=== PATIENT | male | born 1950 | race Caucasian/White ===

== ENCOUNTER 2017-09-03 17:01 | Inpatient (IN) | payer OTHER ==
[~2017-09-03] VITALS: Ht 177.8 cm; Wt 115.7 kg
--- NOTE | ~2017-09-03 | HC ---
[facility] [place] [address] CONSULTATION Name: PHILLIP RODRIGUEZ Room #: 432-P [facility] IN M.R.#: [id number] Admission: 09/03/17 Attend Phys: Brady Black MD Discharge: Date of : 46 Report #: [id number] THIS REPORT FOR: //name// CC: Brady Black Stephane Stewart DATE OF SERVICE: 09/06/2017 ATTENDING PHYSICIAN: Brady Black MD TYPING CHECKER: Brady Hunter, PhD CLINICAL PRESENTATION: The patient is a 66-year-old male admitted to [facility] for evaluation and treatment of shortness of breath. He has a history of lung cancer, COPD and atrial fibrillation. Also, reported is swelling of his leg and right cheek. The patient had a partial pneumonectomy in both lower lobes of his right lung in 2009. Medical problems include community-acquired pneumonia, COPD exacerbation and hypoxia. PAST MEDICAL AND SURGICAL HISTORY: Depression and anxiety, sleep apnea, hypertension, essential tremors, cervical neck fusion with 2 rods with limited range of motion, bilateral knee replacement, right rotator cuff and torn bicep repair, and NIDDM. A complete description of his medical condition and history can be found in his medical record. Neuropsychological consultation was requested to provide assistance in the assessment of cognitive and emotional status and to provide recommendations and services. Prior to this most recent admission, he was living with his in their home. The patient has 2 children that live outside the home. He had 1 brother and 1 sister. His sister about 2 years ago. 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 He completed a GED. His fci was in 04/2005 because of medical problems led to him acquiring disability. He does have a remote history of alcohol abuse. The patient is reported to have been independent with instrumental activities of daily living that include driving. However, his has been helping with aspects of IADL's to allow for living independently. It should be noted that he recently filed for divorce. His indicated that they have been for over 40 years and they were not having any marital conflict. The filing for divorce was an action that very much surprised her. She is recently retiring and planning to assist in his care as necessary so that he can remain living independently. She was not wanting a divorce and continues to maintain assistance in his care. His judgment in filing for divorce is very poor. [facility] [address] [place] [address] CONSULTATION Name: PHILLIP RODRIGUEZ Room #: 432-P [facility] IN ..#: [id number] Admission: 09/03/17 Attend Phys: Brady Black MD Discharge: Date of : 46 Report #: [id number] TECHNIQUES UTILIZED: Clinical interview, review of medical records, staff consultation and behavioral observation, mini-mental status exam 2 standard version, brief abstract reasoning test, letter fluency evaluation and family interview -- . EXAMINATION FINDINGS: The patient was alert and cooperative with the assessment. He accurately described events preceding his hospitalization. However, difficulty with short term memory, word finding, anxiety and depression are reported. He does not report difficulty with sleep or appetite. He mentioned recently filing for divorce because of his 's spending habits. However, as indicated his was unaware of any reason or explanation for his filing for divorce. She has concern about his ability to manage and live independently without her help. Patient is lacking insight into the difficulty that he would have in living independently. His performance on the MMSE-2 brief version was in the borderline range with a raw score of 13, T score of 35 and percentile rank of 7. He was 3/3 for initial registration, 5/5 for orientation to time, 4/[address] and 1/3 for immediate recall of 3 items after a brief time delay and distraction. His performance on the MMSE-2 standard version was at the 10th percentile with a raw score of 24 and a T score at 37. He was 3/5 for serial sevens, 2/2 for naming, 1/1 for repetition, 3/3 for comprehension. He could read and follow a single command. He has a severe upper extremity tremor and was not asked to write or recreate a design. He was able to dictate a sentence. His performance on a brief abstract reasoning test was in the impaired range with a raw score of 5/8. Letter fluency was within normal limits with a raw score of 32 and a T score of 57, which is at the 76th percentile. Category fluency was at the 4th percentile and in the borderline range with a raw score 26 and a T score of 32. Overall, total fluency was in the average range with a raw score of 58 and a T score of 47 and percentile rank of 38. The patient experienced a loss of mental set during category fluency and spontaneouls began naming types of cars instead of animals. Perseveration was also noted in the repetition of items. Greater deficits in category fluency often suggest impairment within the medial temporal lobe involving semantic memory, which can be seen in neurodegenerative disorders that effect memory. Hypoxia can often result in an impairment in memory which will impact judgment. DIAGNOSTIC IMPRESSION: Major neurocognitive disorder (dementia), due to medical etiology -- hypoxic/anoxic trauma -- extent to be determined, likely in the enzh-tk-lrlkatsr range. [facility] [place] [address] CONSULTATION Name: PHILLIP RODRIGUEZ Room #: 432-P ADM IN M.R.#: [id number] Admission: 09/03/17 Attend Phys: Brady Black MD Discharge: Date of : 48 Report #: [id number] Unspecified anxiety disorder. RECOMMENDATIONS: The patient would benefit from a more thorough neuropsychological evaluation following his hospitalization. There is evidence of a severe neurocognitive impairment, which will impact judgment. Assistance in the management of medication, nutrition and finances are indicated. The patient should discontinue driving at this time pending a more thorough evaluation of his competency. Thank you very much for allowing me to provide the consultation on this patient. <ELECTRONICALLY SIGNED> By: Brady Hunter, PhD 09/07/17 1900 1546 1627 Brady Hunter, PhD /nt
--- NOTE | ~2017-09-03 | HC ---
[facility] [place] [address] CONSULTATION Name: PHILLIP RODRIGUEZ Room #: 432-P [facility] IN M.R.#: [id number] Admission: 09/03/17 Attend Phys: Brady Black MD Discharge: Date of : 48 Report #: [id number] THIS REPORT FOR: //name// CC: Brady Stewart REASON FOR CONSULTATION: Atrial fibrillation. HISTORY OF PRESENT ILLNESS: The patient is a 66-year-old gentleman with significant underlying lung disease and permanent atrial fibrillation. His history includes hypertension, sleep apnea for which he uses CPAP, diabetes and lung cancer with resection, now presents with increasing shortness of breath and exertional weakness. No chest heaviness or pressure. He has had about a 7-8 pound weight gain over the past week. He tells me that he uses oxygen at night with his CPAP. He has a pulse oximeter at home and routinely gets oxygen measurements in the 80s during the day. He generally does not use oxygen during the day. His usual weight is around 245 pounds. He denies orthopnea or paroxysmal nocturnal dyspnea. No bleeding problems with Xarelto. ALLERGIES: HE IS ALLERGIC TO POLYMYXIN AND BACITRACIN. MEDICATIONS: Include Cardizem-CD 180 mg twice daily, Lexapro 20 mg daily, torsemide 40 mg daily, Spiriva inhaler, Lipitor 20 mg daily, Levemir 35 units twice daily, metformin 1000 mg twice daily, potassium 20 mEq daily, Victoza 1.8 mg in the evening, Xarelto 20 mg daily, Prevacid as needed. PAST MEDICAL HISTORY: His past history and medical records have been reviewed and includes a history of COPD, cervical fusion and rotator cuff repair, sleep apnea for which he uses CPAP and nocturnal oxygen, diabetes, permanent atrial fibrillation, bilateral knee replacements, pulmonary hypertension. SOCIAL HISTORY: He is a former smoker, he quit in 2002. FAMILY HISTORY: Unremarkable for premature coronary disease. REVIEW OF SYSTEMS: All systems negative except as that noted above. PHYSICAL EXAMINATION: GENERAL: Reveals a pleasant gentleman who is in no distress, alert. VITAL SIGNS: Blood pressure is 125/75, heart rate of 110 and irregular. He is afebrile, 255 pounds. HEENT: There are neither xanthelasma, subcutaneous xanthomata, oral mucosal or digital cyanosis or kyphoscoliosis present. CHEST: Reveals diminished breath sounds at both bases. CARDIOVASCULAR: Irregularly irregular rhythm with a normal S1 and increased pulmonic closure sound. ABDOMEN: Soft and nontender. [facility] [address] [place] [address] CONSULTATION Name: PHILLIP RODRIGUEZ Room #: 432-[facility] IN ..#: [id number] Admission: 09/03/17 Attend Phys: Brady Black MD Discharge: Date of : 48 Report #: [id number] EXTREMITIES: With trace to 1+ edema. Radial pulses are 2+. NEUROLOGIC: He is alert with a nonfocal exam. LABORATORY DATA: EKG: Atrial fibrillation, right bundle branch block. He has a history of normal left ventricular systolic function with moderate pulmonary hypertension in the 50 range. Sodium is 140, potassium 3.8, creatinine 1.0. Troponin of 0, proBNP of 776. White count 8.5, hemoglobin 15, hematocrit 46, platelet count 244. RADIOLOGICAL DATA: Chest x-ray demonstrates an elevation of the right hemidiaphragm. IMPRESSION: 1. Permanent atrial fibrillation. 2. Chronic hypoxemic respiratory failure. 3. Dzqha-ey-jiadzoh diastolic heart failure, multifactorial, in part related to permanent atrial fibrillation and chronic hypoxemic respiratory failure. 4. Diabetes. 5. Sleep apnea, on CPAP and nocturnal oxygen. 6. Hypertension. 7. Hypercoagulable. 8. Lung cancer, prior resection. RECOMMENDATIONS: 1. Resume rate controlling medications. 2. Continued, probably lifelong anticoagulant therapy. 3. Gentle diuresis. 4. Pulmonary evaluation. The patient reports consistently low oxygen saturations at home during day. I suspect in part this may be contributing to some of his symptoms. I have discussed these issues with the patient. Thank you for asking me to participate in his care. <ELECTRONICALLY SIGNED> By: Daniel Rollins MD, FACC 09/08/17 0751 0853 1153 Daniel Rollins MD, FACC /nt
--- NOTE | ~2017-09-03 | 2DMMODE ---
[facility] [address] [place] [address] 2 D/M-MODE ECHOCARDIOGRAM Name: PHILLIP RODRIGUEZ Room #: 432-P [facility] IN ..#: [id number] Admission: 09/03/17 Attend Phys: Brady Black, Discharge: Date of : 46 Date of Service: 09/04/17 1323 Report #: [id number] THIS REPORT FOR: //name// APPROVED REPORT Study performed: 09/04/2017 10:59:19 EXAM: Comprehensive 2D, Doppler, and color-flow Echocardiogram Patient Location: Bedside Room #: 432 Status: routine BSA: 2.31 HR: 98 bpm BP: 123/75 mmHg Other Information Study Quality: Technically Limited/Technically DifficultTechnically Limited Technically limited study due to body habitus, lung disease, inability to position patient. Indications Congestive Heart Failure COPD Diabetes Atrial Fibrillation Hypertension/HDD 2D Dimensions LVEF(%): 54.90 (>50%) IVSd: 10.43 (7-11mm) LVOT Diam: 21.01 (18-24mm) LVDd: 53.67 mm PWd: 10.62 (7-11mm) LVDs: 38.23 (25-40mm) Aortic Root: 32.40 mm IVC: 22.00 mm Hilliard's LVEF: 54.90 % Volumes Left Atrial Volume (Systole) Single Plane 4CH: 39.66 mL Single Plane 2CH: 79.03 mL LA ESV Index: 26.00 mL/m2 Aortic Valve AoV Peak Vikash.: 1.11 m/s AO Peak Gr.: 4.89 mmHg LVOT Max P.13 mmHg [facility] [address] [place] [address] 2 D/M-MODE ECHOCARDIOGRAM Name: JENNIFERPHILLIP Verenice Room #: 432-P [facility] IN [facility]#: [id number] Admission: 09/03/17 Attend Phys: Brady Black, Discharge: Date of : 46 Date of Service: 09/04/17 1323 Report #: [id number] LVOT Max V: 0.53 m/s YUDI Vmax: 1.67 cm2 Mitral Valve MV Decel. Time: 146.18 ms MV E Max Vikash.: 1.12 m/s Tricuspid Valve TR Peak Vikash.: 3.22 m/s RAP Estimate: 15.00 mmHg TR Peak Gr.: 41.54 mmHg PA Pressure: 56.00 mmHg Left Ventricle The left ventricle is normal size. There is normal left ventricular wall thickness. Left ventricular systolic function is borderline. LVEF is 50%. This study is not technically sufficient to allow evaluation of the LV diastolic function due to atrial fibrillation. Right Ventricle Right ventricle is not well visualized. Atria The left atrium size is normal. Right atrium is not well visualized. Aortic Valve The aortic valve is not well visualized. No aortic regurgitation is present. There is no aortic valvular stenosis. Mitral Valve The mitral valve is normal in structure. Trace mitral regurgitation. No evidence of mitral valve stenosis. Tricuspid Valve The tricuspid valve is normal in structure. Mild tricuspid regurgitation. PAP is estimated at 56 mmHg. Pulmonic Valve Pulmonic valve is not well visualized. Great Vessels The aortic root is normal in size. IVC is dilated and collapses <50% with inspiration. Pericardium [facility] [place] [address] 2 D/M-MODE ECHOCARDIOGRAM Name: PHILLIP RODRIGUEZ Room #: 432-P [facility] IN .R.#: [id number] Admission: 09/03/17 Attend Phys: Brady Black, Discharge: Date of : 46 Date of Service: 09/04/17 1323 Report #: [id number] There is no pericardial effusion. <Conclusion> The left ventricle is normal size. LVEF is 50%. Right ventricle is not well visualized. The aortic valve is not well visualized. No aortic regurgitation is present. There is no aortic valvular stenosis. The mitral valve is normal in structure. Trace mitral regurgitation. The tricuspid valve is normal in structure. Mild tricuspid regurgitation. PAP is estimated at 56 mmHg. Pulmonic valve is not well visualized. There is no pericardial effusion. <ELECTRONICALLY SIGNED> By: Kevin Gallegos MD 09/04/17 1323 1323 1323 Kevin Gallegos MD /INF
--- NOTE | ~2017-09-03 | EKG ---
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
[~2017-09-03 17:01] MED LIST: ALLEGRA ALLERG180 MG; ALLEGRA ALLERG180 MG PO; AMIODARONE CV KI1 E1 PO; ASA81BEC PO; B12INJ PO; CARDIZEM CD 18180 M3 PO; CARDIZEM PO; CEFDINIR300 MG PO; CORDARONE PO; COUMADIN PO; DARVOCET-N 1001 EAC1 PO; DEMADEX20 MG PO; GLUCOPHAGE1000 MG PO; LEVEMIR SQ; LEVEMIR SUBQ; LEXAPRO20 MG PO; LIPITOR 20 MG T20 M1 PO; LOPRESSOR100 MG PO; MULTAQ400 MG PO; MULTIVITAMINS PO; PERCOCET 5-3251 EACH PO; POTASSIUM20 PO; PREVACID30 MG PO; PROAIR HFA8.5 GM PO; SIMVASTATIN80 MG PO; TRIHEXYPHENIDYL PO; UNICOMPLEX M TA1 TA1 PO; VICTOZA0.6 MG/0.1 SUBQ; VITAMIN D2000 UNIT PO; WELCHOL 625 MG625 MG PO; XARELTO20 MG PO
[2017-09-03 17:10] VITALS: BP 132/70
[2017-09-03 18:05] LABS: ABSOLUTE NEUTROPHILS 6.4 thou/uL (1.4-8.2); BASOPHILS 0.5 % (0.0-2.0); EOSINOPHILS 2.2 % (0.0-3.0); HEMOGLOBIN 15.6 gm/dL (14.0-18.0); LYMPHOCYTES 12.6 % (24.0-44.0); MCH 31.4 pg (26.0-34.0); MCHC 33.9 g/dL (28.0-37.0); MCV 92.6 fL (80.0-100.0); MONOCYTES 9.7 % (1.0-8.0); PLATELET COUNT 244 thou/uL (150-400); RBC 4.97 mil/uL (4.50-6.00); RDW 13.8 % (10.5-14.5); WBC 8.5 thou/uL (4.0-11.0)
[2017-09-03 18:13] LABS: ANION GAP 7 mmol/L (7-16); BUN 17 mg/dL (7-18); CALCIUM 9.3 mg/dL (8.5-10.1); CHLORIDE 103 mmol/L (98-107); CO2 30 mmol/L (21-32); GLUCOSE 115 mg/dL (74-106); POTASSIUM 3.8 mmol/L (3.5-5.1); SODIUM 140 mmol/L (136-145)
[2017-09-03 18:22] LABS: ALBUMIN 3.8 g/dL (3.4-5.0); SGOT 16 U/L (15-37); SGPT 22 U/L (30-65); TOTAL BILIRUBIN 0.6 mg/dL (<0.1-1.0); TOTAL PROTEIN 7.3 g/dL (6.4-8.2); TROPONIN-I < 0.04 ng/mL (<0.06)
[2017-09-03 19:10] VITALS: BP 128/76
[2017-09-03] MEDS ORDERED: LASIX 20 MG TAB20 MG PO (19:25)
[2017-09-03 20:28] VITALS: BP 99/47
[2017-09-03 21:06] VITALS: BP 131/63
[2017-09-03] MEDS ORDERED: SPIRIVA INH (23:10)
[2017-09-04 05:06] VITALS: BP 120/71
[2017-09-04 08:06] VITALS: BP 123/75
[2017-09-04 11:01] LABS: ALBUMIN 3.9 g/dL (3.4-5.0); CALCIUM 9.3 mg/dL (8.5-10.1); CREATININE 1.1 mg/dL (0.7-1.3); TOTAL BILIRUBIN 0.8 mg/dL (<0.1-1.0); TOTAL PROTEIN 7.1 g/dL (6.4-8.2)
[2017-09-04 16:19] VITALS: BP 123/58
[2017-09-04 16:23] LABS: URINE BILIRUBIN NEGATIVE (Negative); URINE BLOOD NEGATIVE (Negative); URINE CLARITY CLEAR; URINE COLOR YELLOW; URINE GLUCOSE-RANDOM* NEGATIVE (Negative); URINE KETONES NEGATIVE (Negative); URINE LEUKOCYTES-REFLEX NEGATIVE (Negative); URINE NITRITE-REFLEX NEGATIVE (Negative); URINE PROTEIN (DIPSTICK) NEGATIVE (Negative); URINE SPECIFIC GRAVITY <= 1.005 (1.005-1.035); URINE UROBILINOGEN 0.2 E.U./dl (0.2-1.0)
[2017-09-04 20:00] VITALS: BP 111/76
[2017-09-05 04:30] VITALS: BP 124/72
[2017-09-05 04:31] LABS: CALCIUM 9.5 mg/dL (8.5-10.1); POTASSIUM 4.2 mmol/L (3.5-5.1)
[2017-09-05 07:35] VITALS: BP 114/66
[2017-09-05 16:45] VITALS: BP 95/64
[2017-09-05 21:10] VITALS: BP 122/74
[2017-09-06 05:04] VITALS: BP 86/61
[2017-09-06 09:37] VITALS: BP 101/57
[2017-09-06 10:26] LABS: CALCIUM 9.9 mg/dL (8.5-10.1); CREATININE 1.2 mg/dL (0.7-1.3); POTASSIUM 3.9 mmol/L (3.5-5.1)
[2017-09-06 17:34] VITALS: BP 109/62
[2017-09-06 20:00] VITALS: BP 119/71
[2017-09-07 05:28] VITALS: BP 108/77
[2017-09-07 05:30] LABS: CALCIUM 9.5 mg/dL (8.5-10.1); CREATININE 1.1 mg/dL (0.7-1.3); POTASSIUM 4.8 mmol/L (3.5-5.1)
[2017-09-07 08:25] VITALS: BP 107/69
[2017-09-07 18:09] VITALS: BP 102/60
[2017-09-07 21:00] VITALS: BP 122/76
[2017-09-08 02:30] VITALS: BP 123/80
[2017-09-08 05:26] LABS: CALCIUM 9.6 mg/dL (8.5-10.1); CREATININE 1.2 mg/dL (0.7-1.3)
[2017-09-08 05:30] VITALS: BP 114/72
[2017-09-08] MEDS ORDERED: ATENOLOL 50MG T50 M1 PO (08:09)
[2017-09-08] MEDS ORDERED: PREDNISONE 20 M20 M1 PO (08:10)
[2017-09-08 08:22] VITALS: BP 112/70
[2017-09-08 11:56] VITALS: BP 114/65
[2017-09-08 13:32] VITALS: BP 114/65
== END 2017-09-08 15:09 | disposition home health service (06) | DRG 291 ==
LOC: ER 17:01 → 4E 19:36 → EROBS 19:36 → 4E 20:32 → ENTRNSPT 09-08 14:37 → EDTRNSPTSTS 09-08 14:43 → 4E 09-08 15:09
PROVIDERS: Emergency Medicine; Family Medicine; Internal Medicine; Internal Medicine Cardiovascular Disease
PROC: 5A09357 Assistance with Respiratory Ventilation, Less than 24 Consecutive Hours, Continuous Positive Airway Pressure (ICD-10-PCS; principal; 2017-09-04)
DX: I11.0 Hypertensive heart disease with heart failure (principal); J96.21 Acute and chronic respiratory failure with hypoxia; J18.9 Pneumonia, unspecified organism; J44.1 Chronic obstructive pulmonary disease with (acute) exacerbation; D68.59 Other primary thrombophilia; J44.0 Chronic obstructive pulmonary disease with (acute) lower respiratory infection; I50.43 Acute on chronic combined systolic (congestive) and diastolic (congestive) heart failure; I48.91 Unspecified atrial fibrillation; E11.9 Type 2 diabetes mellitus without complications; F32.9 Major depressive disorder, single episode, unspecified; F41.9 Anxiety disorder, unspecified; Z96.653 Presence of artificial knee joint, bilateral; I27.20 Pulmonary hypertension, unspecified; F03.90 Unspecified dementia, unspecified severity, without behavioral disturbance, psychotic disturbance, mood disturbance, and anxiety; G47.33 Obstructive sleep apnea (adult) (pediatric); Z85.118 Personal history of other malignant neoplasm of bronchus and lung; Z98.1 Arthrodesis status; Z79.899 Other long term (current) drug therapy; Z79.4 Long term (current) use of insulin; Z88.8 Allergy status to other drugs, medicaments and biological substances; Z91.040 Latex allergy status; Z87.891 Personal history of nicotine dependence; Z86.711 Personal history of pulmonary embolism
CPT/HCPCS: 10183

== ENCOUNTER → 2018-05-20 | Outpatient (CLI) | payer OTHER ==
[~2018-05-20] MED LIST changes: +ATENOLOL 50MG T50 M1 PO; +LASIX 20 MG TAB20 MG PO; +PREDNISONE 20 M20 M1 PO; +SPIRIVA INH
== END ==
LOC: RAD 14:55
DX: M25.78 Osteophyte, vertebrae (principal); J98.4 Other disorders of lung

== ENCOUNTER 2018-06-02 17:09 | Emergency (ER) | payer OTHER ==
[~2018-06-02] VITALS: Ht 177.8 cm; Wt 68.0 kg
[2018-06-02 17:50] LABS: ABSOLUTE NEUTROPHILS 6.7 thou/uL (1.4-8.2); BASOPHILS 0.6 % (0.0-2.0); EOSINOPHILS 0.9 % (0.0-3.0); HEMATOCRIT 42.9 % (42.0-52.0); HEMOGLOBIN 14.8 gm/dL (14.0-18.0); LYMPHOCYTES 10.7 % (24.0-44.0); MCHC 34.4 g/dL (28.0-37.0); MONOCYTES 7.2 % (1.0-8.0); PLATELET COUNT 242 thou/uL (150-400); POLYS 80.6 % (36.0-66.0); RBC 4.61 mil/uL (4.50-6.00); RDW 13.2 % (10.5-14.5); WBC 8.4 thou/uL (4.0-11.0)
[2018-06-02 18:00] LABS: ANION GAP 7 mmol/L (7-16); BUN 18 mg/dL (7-18); CALCIUM 9.4 mg/dL (8.5-10.1); CHLORIDE 100 mmol/L (98-107); CO2 32 mmol/L (21-32); GLUCOSE 225 mg/dL (74-106); POTASSIUM 3.8 mmol/L (3.5-5.1); SODIUM 139 mmol/L (136-145)
[2018-06-02 18:09] LABS: ALBUMIN 3.7 g/dL (3.4-5.0); INR 1.2; PROTIME 12.2 Seconds (9.3-11.4); SGOT 14 U/L (15-37); SGPT 19 U/L (30-65); TOTAL BILIRUBIN 0.5 mg/dL (<0.1-1.0); TOTAL PROTEIN 6.9 g/dL (6.4-8.2); TROPONIN-I <0.06 ng/mL (<0.06)
[2018-06-02] MEDS ORDERED: STIOLTO RESPIMAT4 GM PO (19:12)
[2018-06-02] MEDS ORDERED: CARDIZEM CD120 MG PO (19:17)
[2018-06-02 20:24] VITALS: BP 110/62
--- NOTE | 2018-06-03 08:36 | EKG ---
[place] [address] [facility] [place] [address] ELECTROCARDIOGRAM REPORT Name: PHILLIP RODRIGUEZ Room #: 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 YEAGER : 1950 Requested By: Lu Hodgson Order Number: [id number] MD: Daniel Rollins Measurements Intervals [place] Rate: 79 P: [place]: QRS: 74 QRSD: 163 T: 19 QT: 439 QTc: 504 Interpretive Statements Atrial fibrillation Right bundle branch block Compared to ECG 09/03/2017 17:27:18 No significant changes Electronically Signed On 06-03-2018 8:36:16 LENS MOLDING EQUIPMENT OPERATOR by Daniel Rollins [email or web address] ��������������������������������������������� <ELECTRONICALLY SIGNED> ���������������������������������������� By: Daniel Rollins MD, [facility] ��������������������������������������������� 06/03/18 0836 1731 1731 Daniel Rollins MD, FACC /EPI
== END 2018-06-02 20:24 | disposition home or self-care (01) ==
LOC: ER 17:09
PROVIDERS: Physician Assistant
DX: R42 Dizziness and giddiness (principal); E11.9 Type 2 diabetes mellitus without complications; F41.9 Anxiety disorder, unspecified; F32.9 Major depressive disorder, single episode, unspecified; G47.30 Sleep apnea, unspecified; I48.91 Unspecified atrial fibrillation; I10 Essential (primary) hypertension; Z96.653 Presence of artificial knee joint, bilateral; Z88.1 Allergy status to other antibiotic agents; Z91.040 Latex allergy status

== ENCOUNTER → 2018-06-29 | Outpatient (CLI) | payer OTHER ==
[~2018-06-29] MED LIST changes: +CARDIZEM CD120 MG PO; +STIOLTO RESPIMAT4 GM PO
== END ==
LOC: RAD 14:57
DX: R05 Cough (principal)

== ENCOUNTER 2018-12-25 12:06 | Emergency (ER) | payer OTHER ==
[~2018-12-25] VITALS: Ht 177.8 cm; Wt 113.8 kg
[2018-12-25] MEDS ORDERED: IPRAT-ALBUT 0.5-3 ML (12:32)
[2018-12-25] MEDS ORDERED: COMBIVENT RESPIM4 GM INH (12:32)
[2018-12-25] MEDS ORDERED: VENTOLIN HFA 1818 GM INH (12:32)
[2018-12-25 13:09] LABS: BASOPHILS 0.4 % (0.0-2.0); EOSINOPHILS 0.9 % (0.0-3.0); HEMATOCRIT 43.4 % (42.0-52.0); HEMOGLOBIN 14.8 gm/dL (14.0-18.0); LYMPHOCYTES 7.6 % (24.0-44.0); MCH 31.9 pg (26.0-34.0); MCV 93.7 fL (80.0-100.0); MONOCYTES 6.3 % (1.0-8.0); PLATELET COUNT 280 thou/uL (150-400); POLYS 84.8 % (36.0-66.0); RBC 4.64 mil/uL (4.50-6.00); RDW 13.8 % (10.5-14.5); WBC 10.6 thou/uL (4.0-11.0)
[2018-12-25 13:12] LABS: CALCIUM 9.7 mg/dL (8.5-10.1); POTASSIUM 3.9 mmol/L (3.5-5.1)
[2018-12-25 13:26] LABS: APTT 29.9 Seconds (24.5-32.8); INR 1.1
[2018-12-25 15:19] VITALS: BP 118/67
== END 2018-12-25 15:40 | disposition home or self-care (01) ==
LOC: ER 12:06
PROVIDERS: Emergency Medicine
DX: S90.31XA Contusion of right foot, initial encounter (principal); I10 Essential (primary) hypertension; I48.91 Unspecified atrial fibrillation; E11.9 Type 2 diabetes mellitus without complications; G47.30 Sleep apnea, unspecified; F32.9 Major depressive disorder, single episode, unspecified; F41.9 Anxiety disorder, unspecified; Z96.653 Presence of artificial knee joint, bilateral; M43.22 Fusion of spine, cervical region; Z98.890 Other specified postprocedural states; Z91.040 Latex allergy status; Z88.1 Allergy status to other antibiotic agents; X58.XXXA Exposure to other specified factors, initial encounter; Y92.89 Other specified places as the place of occurrence of the external cause; Y93.89 Activity, other specified; Y99.8 Other external cause status

== ENCOUNTER → 2018-12-27 | Outpatient (CLI) | payer OTHER ==
[~2018-12-27] MED LIST changes: +COMBIVENT RESPIM4 GM INH; +IPRAT-ALBUT 0.5-3 ML; +VENTOLIN HFA 1818 GM INH
== END ==
LOC: CAT 12:27
DX: M19.071 Primary osteoarthritis, right ankle and foot (principal); M25.471 Effusion, right ankle; M25.771 Osteophyte, right ankle; I25.10 Atherosclerotic heart disease of native coronary artery without angina pectoris; M77.31 Calcaneal spur, right foot

== ENCOUNTER → 2019-02-22 | Outpatient (CLI) | payer OTHER ==
[~2019-02-22] VITALS: Ht 177.8 cm; Wt 113.4 kg
[~2019-02-22] MED LIST changes: -ALLEGRA ALLERG180 MG; +LEVEMIR100 UNIT/1 SUBQ
== END | disposition home or self-care (01) ==
LOC: GI 07:49
DX: R19.5 Other fecal abnormalities (principal); K57.30 Diverticulosis of large intestine without perforation or abscess without bleeding; K64.8 Other hemorrhoids; I10 Essential (primary) hypertension; E11.9 Type 2 diabetes mellitus without complications; I48.91 Unspecified atrial fibrillation; E78.00 Pure hypercholesterolemia, unspecified; J44.9 Chronic obstructive pulmonary disease, unspecified; F32.9 Major depressive disorder, single episode, unspecified; F41.9 Anxiety disorder, unspecified; G47.30 Sleep apnea, unspecified; K21.9 Gastro-esophageal reflux disease without esophagitis; Z98.890 Other specified postprocedural states; Z79.899 Other long term (current) drug therapy; Z87.891 Personal history of nicotine dependence; Z79.4 Long term (current) use of insulin; Z88.8 Allergy status to other drugs, medicaments and biological substances; Z96.653 Presence of artificial knee joint, bilateral; Z85.118 Personal history of other malignant neoplasm of bronchus and lung
CPT/HCPCS: 62110; 62900

== ENCOUNTER 2020-07-26 05:57 | Inpatient (IN) | payer OTHER ==
[~2020-07-26] VITALS: Ht 177.8 cm; Wt 105.1 kg
--- NOTE | 2020-07-26 10:24 | NUR ---
RECEIVED PT FROM EMS. PT COMES FROM [facility]. DR PALACIO CONSULTED. PT IS AGITATED, TRYING TO GET OUT OF BED, REMOVING LEADS AND GOWN. PT IS CRYING OUT AND MOANING FROM BED. SITTER CALLED TO SIT WITH PT PER DR PALACIO ORDERS. ONE TIME HALIDOL GIVEN. WILL CONTINUE TO MONITOR PT; FALL PRECAUTIONS IN PLACE.
[2020-07-26 11:00] LABS: HEMATOCRIT 39.6 % (42.0-52.0); HEMOGLOBIN 13.5 gm/dL (14.0-18.0); MCH 32.3 pg (26.0-34.0); MCV 95.1 fL (80.0-100.0); RBC 4.16 mil/uL (4.50-6.00); RDW 14.3 % (10.5-14.5)
[2020-07-26 11:03] LABS: CALCIUM 9.7 mg/dL (8.5-10.1); CREATININE 2.1 mg/dL (0.7-1.3)
[2020-07-26 11:30] VITALS: BP 103/64
[2020-07-26 16:00] VITALS: BP 96/45
--- NOTE | 2020-07-26 16:43 | NUR ---
Case opened to follow for dc planning. Pt admitted in tx from [facility] with dx of delirium. Covid neg test and notes both vaccines done in May 30. He has a flu shot last fall. Pt's is at bedside. Pt currently sleeping. 1:1 sitter at bedside due to aggitation and confusion upon arrival. Pt's notes he was normally up and around the home indep prior to a week ago. He started having trouble getting around and speaking. She had him use a rwalker a week ago and he has home o2 per [employer] with a baseline of 4.5liters. He uses a cpap at night. He has a hx of copd. She had called EMS several times over the past week due to changes in condition and falls. They have twos steps to enter their home then everything is on one level. He has not been out for the past year other than dr marie due to covid. She indicates a sign change in his mental and functional status and thought he had had a stroke. Stroke workup neg thus far. Dr. Black is his pcp. No recent HH or SNF. They had [facility] a few years ago and would like to use them again if needed. She is open to snf or rehab referrals pending his dx/plan of care. Will ask for therapy evals. Snf options briefly discussed. [facility] may be of interest as it is close to their home and his pcp can follow. Support provided and cm role introduced. Will follow.
[2020-07-26 17:17] LABS: BE(vivo) 12.5 mmol/L (-2 to +3); HCO3 38.4 mmol/L (22.0-26.0); PO2 67.8 mmHg (80.0-100.0); sO2 94.2 % (92.0-98.0)
[2020-07-26 18:59] VITALS: BP 115/70
[2020-07-26 19:26] LABS: URINE BILIRUBIN NEGATIVE (Negative); URINE BLOOD 1+ (Negative); URINE CLARITY CLEAR; URINE COLOR YELLOW; URINE GLUCOSE-RANDOM* NEGATIVE (Negative); URINE KETONES NEGATIVE (Negative); URINE LEUKOCYTES NEGATIVE (Negative); URINE NITRITE NEGATIVE (Negative); URINE PROTEIN (DIPSTICK) NEGATIVE (Negative); URINE SPECIFIC GRAVITY 1.015 (1.005-1.035)
[2020-07-26 19:46] LABS: BACTERIA None Seen /HPF (None Seen); CASTS None Seen /LPF (None Seen); CRYSTALS None Seen /LPF (None Seen); SQUAMOUS None Seen /LPF (0-3); URINE RBC 1-2 Rare /HPF (NONE SEEN); URINE WBC 1-5 Rare /HPF (NONE SEEN)
[2020-07-27 02:48] LABS: PCO2 42.7 mmHg (35.0-45.0); PO2 57.9 mmHg (80.0-100.0); pH 7.519 (7.360-7.450); sO2 92.5 % (92.0-98.0)
[2020-07-27 05:02] LABS: HEMOGLOBIN 13.5 gm/dL (14.0-18.0); MCH 32.9 pg (26.0-34.0); MCHC 34.6 g/dL (28.0-37.0); MCV 95.1 fL (80.0-100.0); RBC 4.1 mil/uL (4.50-6.00); RDW 14.2 % (10.5-14.5); WBC 9.6 thou/uL (4.0-11.0)
[2020-07-27 05:28] LABS: CALCIUM 9.7 mg/dL (8.5-10.1); CREATININE 1.5 mg/dL (0.7-1.3)
[2020-07-27 05:31] LABS: POTASSIUM 2.8 mmol/L (3.5-5.1)
--- NOTE | 2020-07-27 05:52 | NUR ---
PATIENT STARTED TO DISPLAY WORSENING HYPOXIA THROUGHOUT SHIFT. CHEST XRAY AND ABG OBTAINED WITH ASSESSMENTS SHOWING BREATHING DIFFICULTIES. ORDERS OBTAINED FOR LASIX WITH FLUIDS PUT ON HOLD. PATIENT PLACED ON NON REBREATHER WITH CONTINUOUS SATURATION MONITOR SHOWING SATS IN UPPER 90'S.
[2020-07-27 06:07] LABS: GLYCOHEMOGLOBIN (HGB A1C) 6.3 % (4.8-5.6)
[2020-07-27 06:26] VITALS: BP 126/85
[2020-07-27 08:38] VITALS: BP 142/107
--- NOTE | 2020-07-27 10:31 | NUR ---
ASSUMED PT CARE AT 0700. PT RESTING AT THIS TIME. 0845. ASSESSMENT PERFORMED CHARTED. SITTER AT BEDSIDE. PT DENIES PAIN. PT ATE SOME JELLO AND YOGURT, TOLERATED WELL. VSS. WILL CONTIUE TO MONITOR AND FOLLOW POC.
--- NOTE | 2020-07-27 12:29 | 2DMMODE ---
[facility] [place] [address] 2 D/M-MODE ECHOCARDIOGRAM Name: PHILLIP RODRIGUEZ Room #: 216-P ADM IN M.R.#: [id number] Admission: 07/26/20 Attend Phys: Chino Ohara MD Discharge: Date of : 48 Report #: [id number] THIS REPORT FOR: cc: Brady Black MD, Neal A. MD Lundgren, Craig H. MD [facility] ~ APPROVED REPORT Study performed: 07/27/2020 11:44:45 EXAM: Comprehensive 2D, Doppler, and color-flow Echocardiogram Patient Location: Bedside Room #: 216 Status: routine BSA: 2.24 HR: 110 bpm BP: 142/107 mmHg Rhythm: Atrial Fibrillation Other Information Study Quality: Technically Difficult Technically limited study due to uncooperative patient, body habitus, lung disease. Indications COPD Diabetes Atrial Fibrillation Dyspnea Hypertension/HDD 2D Dimensions IVSd: 8.94 (7-11mm) LVOT Diam: 21.32 (18-24mm) LVDd: 44.05 mm PWd: 7.81 (7-11mm) Ascending Ao: 30.88 (22-36mm) LVDs: 33.03 (25-40mm) Left Atrium: 43.62 (27-40mm) Aortic Root: 31.91 mm IVC: 27.00 mm Aortic Valve AoV Peak Vikash.: 1.11 m/s AO Peak Gr.: 4.89 mmHg LVOT Max P.98 mmHg LVOT Max V: 0.70 m/s YUDI Vmax: 2.27 cm2 [facility] [address] [place] [address] 2 D/M-MODE ECHOCARDIOGRAM Name: PHILLIP RODRIGUEZ Room #: 216-P [facility]#: [id number] Admission: 07/26/20 Attend Phys: Chino Ohara MD Discharge: Date of : 46 Report #: [id number] Pulmonary Valve PV Peak Vikash.: 0.53 m/s PV Peak Gr.: 1.13 mmHg Tricuspid Valve TR Peak Vikash.: 3.33 m/s TR Peak Gr.: 44.54 mmHg PA Pressure: 60.00 mmHg Left Ventricle The left ventricle is normal size. There is normal LV segmental wall motion. There is normal left ventricular wall thickness. The left ventricular systolic function is normal. The left ventricular ejection fraction is within the normal range. LVEF is 50-55%. This study is not technically sufficient to allow evaluation of the LV diastolic function due to atrial fibrillation. Right Ventricle Right ventricle is dilated. Right ventricle is hypokinetic. Atria Right atrium is dilated. Aortic Valve The aortic valve is normal in structure. No aortic regurgitation is present. There is no aortic valvular stenosis. Mitral Valve The mitral valve is normal in structure. Mild mitral regurgitation. No evidence of mitral valve stenosis. Tricuspid Valve The tricuspid valve is normal in structure. There is moderate tricuspid regurgitation. Estimated pulmonary artery pressure of 60mmHg. There is moderate pulmonary hypertension. Pulmonic Valve The pulmonary valve is normal in structure. There is no pulmonic valvular regurgitation. Great Vessels The aortic root is normal in size. The inferior vena cava is dilated with no inspiratory collapse. Pericardium [facility] [address] [place] [address] 2 D/M-MODE ECHOCARDIOGRAM Name: PHILLIP RODRIGUEZ Room #: 216-P [facility] IN .R.#: [id number] Admission: 07/26/20 Attend Phys: Chino Ohara MD Discharge: Date of : 46 Report #: [id number] There is no pericardial effusion. <Conclusion> The left ventricular systolic function is normal. LVEF is 50-55%. Septal flattening consistent with right ventricular pressure overload Right atrium and ventricle are dilated. Right ventricle is hypokinetic. The aortic valve is normal in structure. No aortic regurgitation or stenosis The mitral valve is normal in structure. Mild mitral regurgitation. There is moderate tricuspid regurgitation. Estimated pulmonary artery pressure of 60mmHg. There is no pericardial effusion. <ELECTRONICALLY SIGNED> By: Daniel Rollins MD, [facility] 07/27/20 1229 1229 1229 Daniel Rollins MD, FACC /INF
--- NOTE | 2020-07-27 12:51 | NUR ---
Case discussed with the care team this morning. Had respiratory distress this am and started on iv lasix with increased o2. Mental status improved but not enough to work with therapy this am. PT/OT/ST and 5N aureaals pending. Lakisha navigator is follow along. No weekend dc anticipated. Will reassess for dc planning needs in the am.
--- NOTE | 2020-07-27 17:07 | NUR ---
PT RESTING WITH FAMILY AT THE MOMENT. FAMILY TALKING WITH DR BERNARD. ASSESSMENT UNCHANGED. VSS. WILL CONTINUE TO MONITOR AND FOLLOW POC.
[2020-07-27 19:45] VITALS: BP 103/71
[2020-07-28 03:47] VITALS: BP 114/62
[2020-07-28 04:24] LABS: CALCIUM 9.3 mg/dL (8.5-10.1); CREATININE 1.6 mg/dL (0.7-1.3); HEMATOCRIT 36.5 % (42.0-52.0); HEMOGLOBIN 12.6 gm/dL (14.0-18.0); MCH 33.2 pg (26.0-34.0); MCHC 34.6 g/dL (28.0-37.0); RBC 3.8 mil/uL (4.50-6.00); RDW 14.4 % (10.5-14.5); WBC 7.6 thou/uL (4.0-11.0)
--- NOTE | 2020-07-28 05:55 | NUR ---
PROGRESS PT ALERT TO SELF BUT NOT ORIENTED TO TIME PLACE OR PEOPLE. CRYING OUT AND TRYING TO GET OOB. WHEN QUESTIONED STATED HE WAS IN PAIN ALL OVER HYDROCODONE GIVEN WITH EFFECT PT SETTLED DOWN AND SLEPT AFTER. AFEBRILE, VSS, TELEMETRY INTACT READING SA/ST WITH RATES IN THE 80'S TO 120'S. IVF'S INFUSING INTO RAC ORDERED. ON 15 LITERS O2 VIA VENTI MASK SATS REMAIN IN UPPER 90'S. REPOSITIONED Q2HRS. LOWER EXTREMETIES WITH 3 PLUS EDEMA, SCATTERED SMALL SCABS TO SHINS AND FEET, AND FOREARMS, BRUISING NOTED ON ARMS. WEISS IN PLACE DRAINING ADEQUATE AMOUNT OF DARK YELLOW URINE. TOOK SMALL SIPS OF H2O WHEN OFFERED AND MEDS CRUSHED AND PLACED IN APPLESAUCE AFTER PT CHEWED FIRST PILL GIVEN. CONTINUE POC.
[2020-07-28 07:50] VITALS: BP 102/74
[2020-07-28 11:45] VITALS: BP 102/64
[2020-07-28 15:30] VITALS: BP 111/65
--- NOTE | 2020-07-28 17:02 | NUR ---
PATIENT IMPROVED SIGNIFICANLTY TODAY. HE HAS BEEN AWAKE ASKING QUESTIONS LIKE " WHICH HOSPITAL I'M I IN"? ATE ALL THREE MEALS. DID NOT COUGHING WITH SWALLOWING. WILL GET SPEACH TO SEE THURSDAY. KEPT CLEAN AND DRY. WEISS INTACT DRAINING CLEAR YELLOW URINE. WILL CONT WITH PLAN OF CARE.
[2020-07-28 20:00] VITALS: BP 103/64
[2020-07-29 04:20] VITALS: BP 119/86
[2020-07-29 05:10] LABS: HEMATOCRIT 38.3 % (42.0-52.0); HEMOGLOBIN 13.2 gm/dL (14.0-18.0); MCH 33.3 pg (26.0-34.0); MCHC 34.6 g/dL (28.0-37.0); MCV 96.3 fL (80.0-100.0); RBC 3.97 mil/uL (4.50-6.00); RDW 14.2 % (10.5-14.5); WBC 8.7 thou/uL (4.0-11.0)
[2020-07-29 05:28] LABS: CALCIUM 9.1 mg/dL (8.5-10.1); CREATININE 1.6 mg/dL (0.7-1.3); POTASSIUM 3.5 mmol/L (3.5-5.1)
--- NOTE | 2020-07-29 06:42 | NUR ---
ASSUMED CARE AT 1900. PT C/O LOWER BACK PAIN, GAVE PAIN MEDS x2 OVERNIGHT. PT GRADUALLY MORE CONFUSED OVERNIGHT, KEPT PULLING HIS O2 OFF AND PULLING AT HIS GOWN, VERY RESTLESS AND MOANING. GAVE A PRN ZYPREXA DURING THE NIGHT. GAVE PT NECTAR THICK LIQUIDS AND PILLS CRUSHED IN APPLESAUCE, WHICH HE TOLERATED WELL, BUT WHEN GIVEN GLORY CRACKERS W/SOME PEANUT BUTTER HE WOULD COUGH AND CHOKE AND STRUGGLE TO GET IT DOWN. PLACED CONSULT TO SPEECH THERAPY. LOW URINE OUTPUT OVERNIGHT, ONLY 450 ML. NO OTHER CONCERNS, WILL CONTINUE TO MONITOR.
[2020-07-29 08:36] VITALS: BP 96/74
[2020-07-29 12:00] VITALS: BP 118/70
[2020-07-29 16:00] VITALS: BP 98/59
--- NOTE | 2020-07-29 18:05 | NUR ---
PATIENT CONT TO PROGRESS AT A REMARKABLE PACE. HE IS WIDE AWAKE AND CALM. ABLE TO PUSH CALL AND MAKE A REQUESTS. NO MORE NOTED GROANING OR YELLING. ASKED FOR PAIN MEDICATION APPROPRAITE FOR BACK PAIN. MED WAS EFFECTIVE HE IS NOTED SLEEPING. REPOSITIONED Q2HRS. BLE STILL EDEMATOUS. IV D/C. FLUIDS HAVCE ENCOURAGED AND HE DRANK GENEROUSLY. WILL CONT WITH PLAN OF CARE.
[2020-07-29 20:15] VITALS: BP 105/69
[2020-07-30 04:45] VITALS: BP 108/64
--- NOTE | 2020-07-30 07:04 | EKG ---
[address] [address] ELECTROCARDIOGRAM REPORT Name: PHILLIP RODRIGUEZ Room #: 216-P ADM IN M.R.#: [id number] Admission: 07/26/20 Attend Phys: Chino Ohara MD Discharge: Date of : 46 Report #: [id number] [facility] Test Date: 2020-07-28 Test Time: 07:32:48 Pat Name: PHILLIP RODRIGUEZ Department: Room: 216 P Gender: M Manager Billing: : 1950 Requested By: Daniel Rollins Order Number: [id number] : Stephane Cosby Measurements Intervals [place] Rate: 102 P: [place]: QRS: 133 QRSD: 172 T: 29 QT: 413 QTc: 539 Interpretive Statements Atrial fibrillation Right bundle branch block Compared to ECG 06/02/2018 17:31:05 No significant changes Electronically Signed On 07-30-2020 7:03:53 CDT by Stephane Cosby [email or web address] <ELECTRONICALLY SIGNED> By: Stephane Cosby MD, [facility] 07/30/20702 07 Stephane Cosby MD, FACC /EPI
[2020-07-30 08:00] VITALS: BP 120/77
[2020-07-30 12:14] VITALS: BP 141/79
--- NOTE | 2020-07-30 15:03 | NUR ---
met with patient who is alert. Discussed rehab with patient. called and reviewed post acute list. Discussed 5[facility] evaled and not a candidate per 5N. Discussed facilities and reviewed with . she plans to discuss with dtr. Agreeable for referral to [facility] to review.
[2020-07-30 16:00] VITALS: BP 109/65
--- NOTE | 2020-07-30 19:45 | NUR ---
ASSUMED CARE SHIFT CHANGE. ASSESSMENTS CHARTED.MEDS GIVEN PER MAY. PT LETHARGIC UPON AM ASSESSMENT. DAY PROGRESSED PT BECAME MUCH MORE ALERT AND RESPONSIVE. VIDEO SWALLOW THIS SHIFT--REFER TO RESULTS. ANUSHKA PUREED DIET. SPOUSE UPDATED ON POC. O2 SATS WNL 3-4L O2. TURNS TOLERATED. CONTINUING POC. REPORT PASSED ONTO ANA BELL.
[2020-07-30 20:15] VITALS: BP 108/67
[2020-07-31 04:45] VITALS: BP 108/68
[2020-07-31 04:58] LABS: HEMATOCRIT 39.6 % (42.0-52.0); HEMOGLOBIN 13.2 gm/dL (14.0-18.0); MCH 33.1 pg (26.0-34.0); MCHC 33.5 g/dL (28.0-37.0); MCV 98.9 fL (80.0-100.0); RDW 14.1 % (10.5-14.5); WBC 6.5 thou/uL (4.0-11.0)
[2020-07-31 05:41] LABS: CALCIUM 9.8 mg/dL (8.5-10.1); CREATININE 1.5 mg/dL (0.7-1.3); POTASSIUM 3.3 mmol/L (3.5-5.1)
[2020-07-31 08:00] VITALS: BP 107/68
[2020-07-31 12:00] VITALS: BP 115/78
[2020-07-31 16:00] VITALS: BP 128/83
--- NOTE | 2020-07-31 16:14 | NUR ---
Case discussed with the care team. [facility] rehab property specialist has reevaluated the pt due to today's therapy report. They can accept the pt for rehab admission tomorrow. Discussed with the pt,his and dtr at bedside. They are going to discuss overnight and advise in the am. [facility] of OP notified of above. All questions answered. Pt and family's goal is to return home with hh at dc. Pt has home o2 in place. Pt/family to confirm choice in am. Care team updated.
--- NOTE | 2020-07-31 17:55 | NUR ---
PT ALERT AND ORIENTED TIMES TWO. VSS. 02 5L. PT DENIES PAIN. WEISS TO DD. PT TOLERATES MEDS AND MEALS. PT WORKED WELL WITH PT/OT TODAY. PT AND DAUGHER AT BEDSIDE THIS EVENING. POSSIBLE PLANS TO DC [facility] REHAB TOMORROW. PT PROGRESSING TOWRADS POC GOALS.
[2020-07-31 20:26] VITALS: BP 98/46
[2020-08-01 04:30] VITALS: BP 103/62
--- NOTE | 2020-08-01 05:46 | NUR ---
ASSESSMENTS CHARTED, MEDS CHARTED GIVEN. PATIENT PLEASANTLY CONFUSED. WEISS WAS REMOVED DURING DAY SHIFT, PATIENT HAD DIFFICULTY USING THE URINAL IN THE BED, TRIED THE EXTERNAL MALE CATHETER, BUT PATIENT REMOVED IT TWICE. PATIENT USED HOME CPAP DURING NIGHT. PATIENT ACTUALLY LIKES THE HONEY THICK WATER. FALL PRECAUTIONS IN PLACE DURING SHIFT.
[2020-08-01 05:48] LABS: CALCIUM 9.7 mg/dL (8.5-10.1); CREATININE 1.4 mg/dL (0.7-1.3); POTASSIUM 3.5 mmol/L (3.5-5.1)
[2020-08-01 07:58] VITALS: BP 121/85
[2020-08-01] MEDS ORDERED: HYDROCODON-ACE1 EAC7 PO (11:49)
[2020-08-01] MEDS ORDERED: CARDIZEM CD 18180 M3 PO (11:49)
[2020-08-01] MEDS ORDERED: FLOMAX0.4 MG PO (11:50)
[2020-08-01 12:53] VITALS: BP 137/84
--- NOTE | 2020-08-01 14:21 | NUR ---
Bladder scan: over 306ml, Dr. Ohara ordered beebe catheter, voicing that the patient would go to 5[facility] with the beebe catheter.
--- NOTE | 2020-08-01 15:07 | NUR ---
Spoke with pt at bedside and via phone. Plan for 5[facility] this afternoon. All parties in agreement. Pt's home cpap is at bedside and label with pt's name place. Unit Rn to send with the pt this afternoon and call pt's with the room number. [facility] cm to follow for hh/dme referrals at ca. [facility] of OP SNF referral cancelled.
--- NOTE | 2020-08-01 15:12 | NUR ---
Patient sent to 5[facility], with his Cpap and glasses. called( [phone]), left voice mail about the new room number and the name of the nurse who is taking care of the patient.
== END 2020-08-01 15:07 | DRG 682 ==
LOC: 2N 05:57
PROVIDERS: Internal Medicine; Nurse Practitioner; Nurse Practitioner Family; ADMIT Hospitalist; ATTEND Hospitalist
PROC: 5A09357 Assistance with Respiratory Ventilation, Less than 24 Consecutive Hours, Continuous Positive Airway Pressure (ICD-10-PCS; principal; 2020-07-26)
PROC: 5A09357 Assistance with Respiratory Ventilation, Less than 24 Consecutive Hours, Continuous Positive Airway Pressure (ICD-10-PCS; 2020-07-27)
PROC: 5A09357 Assistance with Respiratory Ventilation, Less than 24 Consecutive Hours, Continuous Positive Airway Pressure (ICD-10-PCS; 2020-07-29)
PROC: 5A09357 Assistance with Respiratory Ventilation, Less than 24 Consecutive Hours, Continuous Positive Airway Pressure (ICD-10-PCS; 2020-07-31)
DX: N17.9 Acute kidney failure, unspecified (principal); J18.9 Pneumonia, unspecified organism; G92 Toxic encephalopathy; J96.91 Respiratory failure, unspecified with hypoxia; I48.21 Permanent atrial fibrillation; L03.115 Cellulitis of right lower limb; E87.0 Hyperosmolality and hypernatremia; D68.59 Other primary thrombophilia; I13.0 Hypertensive heart and chronic kidney disease with heart failure and stage 1 through stage 4 chronic kidney disease, or unspecified chronic kidney disease; R33.9 Retention of urine, unspecified; I50.9 Heart failure, unspecified; Z20.822 Contact with and (suspected) exposure to COVID-19; F32.9 Major depressive disorder, single episode, unspecified; F41.9 Anxiety disorder, unspecified; Z96.653 Presence of artificial knee joint, bilateral; K21.9 Gastro-esophageal reflux disease without esophagitis; G47.33 Obstructive sleep apnea (adult) (pediatric); E87.6 Hypokalemia; R41.0 Disorientation, unspecified; E78.5 Hyperlipidemia, unspecified; N18.9 Chronic kidney disease, unspecified; I87.8 Other specified disorders of veins; S06.0X0A Concussion without loss of consciousness, initial encounter; E11.22 Type 2 diabetes mellitus with diabetic chronic kidney disease; Z85.118 Personal history of other malignant neoplasm of bronchus and lung; Z88.1 Allergy status to other antibiotic agents; Z88.8 Allergy status to other drugs, medicaments and biological substances; Z79.4 Long term (current) use of insulin; Z87.891 Personal history of nicotine dependence; Z79.01 Long term (current) use of anticoagulants; Z99.81 Dependence on supplemental oxygen; Z86.711 Personal history of pulmonary embolism; W18.39XA Other fall on same level, initial encounter; Y93.89 Activity, other specified; Y92.89 Other specified places as the place of occurrence of the external cause; Y99.8 Other external cause status
CPT/HCPCS: 10081; 10797

== ENCOUNTER 2020-08-01 08:14 | Inpatient (IN) | payer OTHER ==
[~2020-08-01] VITALS: Ht 177.8 cm; Wt 101.2 kg
[2020-08-01] MEDS ORDERED: HYDROCODON-ACE1 EAC7 PO (11:49)
[2020-08-01] MEDS ORDERED: CARDIZEM CD 18180 M3 PO (11:49)
[2020-08-01] MEDS ORDERED: FLOMAX0.4 MG PO (11:50)
[2020-08-01 15:09] VITALS: BP 127/58
--- NOTE | 2020-08-01 15:46 | NUR ---
1500 ADMITTED TO ROOM 512. PATIENT IS ALERT TO PERSON ONLY, VERY CONFUSED, THINKS HE IS IN A [employer]CT[employer]. ABLE TO SQUEEZE MY HANDS. LUNGS ARE DEMINISHED. 02 AT 5L PER N/C. ABD IS SOFT WITH BSX4. INCONTINENT OF STOOL. WEISS TO DD, DRAINING ALEJANDRA COLORED URINE. PATIENT HAS LEFT ELBOW S.T. COVERED WITH OPTIFOAM. PATIENT HAS BRUISE ON BOTH ARMS. PATIENT HAS ABRASIONS ON BOTH LEGS AND 2+ EDEMA IN BOTH LEGS. PATIENT HAS S.L. IN HIS LEFT FORARM. PATIENT ENCOURAGED PO FLUIDS. FALL AND SAFETY PROTOCOLS IN PLACE. DENIES PAIN AT THIS TIME. P.T., O.T. AND S.T. EVALS TO BE DONE IN A.M. WILL CONTINUE TO MONITER.
[2020-08-01 20:00] VITALS: BP 125/92
--- NOTE | 2020-08-02 01:00 | NUR ---
PT ALERT, CONFUSED AND DISORIENTED. RESTLESS, PULLING OFF 02 SAT MONITOR AND CPAP. YELLING OUT FOR HELP. LUL MAXWELL NOTIFIED AND ORDER RECEIVED FOR ATIVAN WHICH WAS GIVEN AT 2330. HAS NOT HELPED MUCH. 02 AT 5L PER NC APPLIED SINCE PT WILL NOT KEEP CPAP ON. PT MOANING IF HE IS IN PAIN. WHEN ASKED HE SAID HE WAS IN PAIN BUT UNABLE TO REPORT WHERE PAIN IS. HYDROCODONE GIVEN ORDERED. WEISS PATENT DRAINING DARK YELLOW URINE. PT TAKES MEDS CRUSHED IN APPLESAUCE WITHOUT DIFFICULTY. INCONT OF SMALL AMT BROWN STOOL. BED ALARM ON FOR SAFETY. PT CHECKED ON MORE FREQUENTLY THAN HOURLY ROUNDS.
[2020-08-02 05:50] LABS: HEMATOCRIT 38.1 % (42.0-52.0); HEMOGLOBIN 12.8 gm/dL (14.0-18.0); MCH 33.2 pg (26.0-34.0); MCHC 33.7 g/dL (28.0-37.0); MCV 98.6 fL (80.0-100.0); RBC 3.86 mil/uL (4.50-6.00); RDW 14.4 % (10.5-14.5); WBC 7.9 thou/uL (4.0-11.0)
[2020-08-02 06:05] LABS: CALCIUM 9.5 mg/dL (8.5-10.1); CREATININE 1.3 mg/dL (0.7-1.3); POTASSIUM 3.1 mmol/L (3.5-5.1)
[2020-08-02 08:00] VITALS: BP 121/75
--- NOTE | 2020-08-02 10:45 | NUR ---
ASSUMED CARE AT 0700. PT WAS UP AND MOANING ALL THROUGH THE NIGHT AND WAS GIVEN PO ATIVAN AT NIGHT AND MANAGED TO GET SOME SLEEP PER NOC RN. THIS MORNING WAS CONT TO MOANS AND VERY CONFUSED, RESTLESS, IMPULSIVE AND PULLED HIS IV AND REMOVING HIS GOWN AND 02. LETHARGY, AROUSABLE AND ORIENTATED TO SELF AND HIS DATE OF ONLY. WEISS INTACT AND DRAINING ADEQ. PHY THERAPY GOT HIM UP AND PT NEEDS FREQ CUING AND DIRECTIONS. GOT HIM IN THE DINING ROOM AND PT SEEMS MORE CALMER AND ORIENTATED TO SELF AND PLACE ONLY. HE WAS ABLE TO SELF FEED, ATE WELL. NEEDS CUING TO INC WITH WATER INTAKE. TOLERATED ALL HIS MED CRUSHED WITH APPLE SAUCE. COOPERATIVE WITH THERAPY TODAY AND ABLE TO FOLLOW COMMANDS MUCH HE IS COGNITIVELY ABLE TO. CONT TO MONITOR.
--- NOTE | 2020-08-02 10:47 | NUR ---
chart review. cm visited with bobby at dinning table, he was up drinking thicken liquid " constipated"/bobby, education and cm,dcp, and weekly meeting. " there is that blonde women"/bobby. cm cont to visit with bobby, noted on o2 per nasal cannula. had to ask question in diff ways for him to answer question IE: ? 2021, what is your birthday [birth year]"/bobby. noted he lives at home with his , was independent prior to hospital. 2 steps to enter then on the main level of home. has home oxygen 4.[address] beal. changes in mental and functional status. will cont following as needed for dc needs. cm passed on information to bedside nurse about pt stated constipated.
--- NOTE | 2020-08-02 12:26 | NUR ---
WOUND CONSULT; THE INITIAL ASSESSMENT REVEALED A SKIN TEAR TO THE LEFT ELBOW AREA. THE WOUND BED IS PURPLISH AND DRY AND IS CHUCHO. THE SKIN TEAR EDGES ARE NOT VIABLE. THERE IS NO S/S OF INFECTION AT THIS TIME. THE PATIENT HAS VERY FRAGILE SKIN. RECOMMENDATIONS; -XEROFORM,COVERED WITH A BORDER FOAM CHANGE M/W/F PRN. DISCUSSED WITH RAY
--- NOTE | 2020-08-02 13:25 | NUR ---
Nutrition: Received consult stating "altered diet consistency". Pt admit to rehab unit with acute encephalopathy, S/P fall/concussion. ST trialing diet upgrade during visit. Noted pt has ate 100% of most meals past few days. Pt reports a hx of intentional weight loss due to cutting down on portions. Does have some confusion so unsure of reported UBW of 280#. Recent weights in 230s. Skin tear to left elbow. 2+ bilateral leg/feet edema. Current diet 2 gm Na, pureed honey thick liquids. Consider low nutrition risk at this time.
[2020-08-02 14:47] LABS: FOLIC ACID 35.8 ng/mL (8.6-58.9)
--- NOTE | 2020-08-02 15:45 | NUR ---
ADV. DIR. CONSULT [id number] COMPLETED BY THIS BAND SPLICER. WAS PRESENT. THIS BAND SPLICER HAD UNIT MILL BEAM FITTER DOUBLE CHECK THE PTS' ABILITY TO MAKE DECISIONS REGARDING HEALTHCARE ADV. DIR. FORM SIGNED AND COPIED. ORIGINAL GIVE TO PT. AND COPY PLACED IN CHART.
[2020-08-02 20:30] VITALS: BP 123/68
[2020-08-03 00:06] LABS: GLYCOHEMOGLOBIN (HGB A1C) 6.2 % (4.8-5.6)
--- NOTE | 2020-08-03 02:41 | NUR ---
assumed care approx 1900 evening 08/02. pt has been awake all night so far despite giving prn meds for sleep and relaxation. pt pulled off his cpap twice tonight and pulled off 02 finger probe. pt continues to pull off 02 and remain restless, confused, calling out constantly. pt pulled IV out and will not keep any clothes on or covers. PLASTER PATTERN CASTER paged so far twice tonight for orders and per PLASTER PATTERN CASTER pt was also with this behavior downstairs before coming up to rehab. pt continues to be monitored closely. bed alarm on and call light in reach. will continue to monitor.
[2020-08-03 07:15] VITALS: BP 121/108
--- NOTE | 2020-08-03 11:45 | NUR ---
ASSUMED CARE AT 0700. PT DID NOT SLEEP WELL LAST NIGHT DUE TO CONFUSION AND RESTLESSNESS PER NIGHT RN. THIS MORNING PT CONT TO BE CONFUSED, ORIENTATED TO SELF ONLY AND HAS HIS 02 OUT AND GOWN REMOVED. PT NEEDS FREQ REDIRECTION AND SEEMS MORE ALERT WHEN GOT HIM UP FOR BREAKFAST. ABLE TO SELF FEED, SUPERVISED WITH ST TODAY. TOLERATED MEDS CRUSHED WITH APPLE SAUCE. INFORMED DR BERNARD REGARDING PT BEHAVIOUR AND LACK OF SLEEP, NO NEW ORDERS RECEIVED. SEEN BY DR DOSHI WITH NEUROLOGY AND DISCONTINUED HIS TRIHEXYPHENIDYL AND SEROQUEL TODAY. PT SEEMS MORE ALERT AND COOPERATIVE WHEN SITTING UP IN THE WC. WOUND CARE DONE TO L ELBOW. NEW IV ON R WRIST PER IV TEAM.
[2020-08-03 20:05] VITALS: BP 99/62
--- NOTE | 2020-08-04 02:27 | NUR ---
assumed care approx 0 evening 08/03. pt sitting up in w/c at change of shift appropriate and cooperative. pt took hs meds crushed with applesauce tolerating well. pt had incontinent bm and also on bsc. pt max assist into bed and legs elevated on pillows. pt fitted with cpap and not snug on his face and sats <92%. pt switched to 02 n/c 4l and sats better 92% and greater., pt not sleeping well again tonight starting to pull off 02 fingerprobe and moan. beebe to dd with zoran colored urine in bag. pt confused and forgetful. bed alarm on and call light in reach. will continue to monitor.
[2020-08-04 08:13] VITALS: BP 106/71
--- NOTE | 2020-08-04 11:15 | NUR ---
ASSUMED CARE AT 0700. PATIENT IS ALERT AND ORIENTED X3 TODAY, BUT IS FORGETFUL. HE THOUGHT HE WAS IN THE [employer] AT ONE POINT WITH S.T. AT BREAKFAST. PATIENT HAS BEEN UPGRADED FROM CRUSHED MEDS WITH PUDDING AND HONEY THICK LIQUIDS TO PILL WHOLE WITH PUDDING AND HONEY THICK LIQUIDS. LUNGS ARE CLEAR AND DEMINISHED. ABD IS SOFT WITH BSX4. PATIENT CONTINUES TO BE INCONTINENT OF STOOL AT TIMES. PATIENT HAS S.L. IN HIS LEFT WRIST. PATIENT CONTINUES ON PO ABT. PATIENT HAS BRUISING ON HIS ARMS AND HAS OPTIFORAM TO HIS LEFT ELBOW. PATIENT HAS WEISS TO DD, DRAINING ALEJANDRA COLORED URINE. UP IN W/C FOR MEALS WITH S.T. PATIENT WAS ABLE TO FEED HIMSELF. FALL AND SAFETY PROTOCOLS IN PLACE. DENIES PAIN AT THIS TIME. CONTINUES TO PROGRESS SLOWLY TOWARDS D/C GOALS. WILL CONTINUE TO MONITER.
[2020-08-04 19:35] VITALS: BP 117/71
--- NOTE | 2020-08-05 03:06 | NUR ---
UP IN W/C IN THE EVENING, ASKING FOR ASSIST TO STAND AND FLIP HIS PILLOW ON WC BEFORE HE SITS BACK DOWN, O2 AT 4 LITERS PNC. SUDDENLY AT 2300, HE ASKED TO GO TO BED, BRIEF REMOVED, LOW AIR LOSS MATTRESS ON, HOME CPAP UNIT ON PER REQUEST, REQUIRING 10 LITERS TO KEEP O2 SAT GREATER THAN 92%. SAT HAS BEEN RANGING FROM 96-98 IN THE LAST 2 HOURS AND HE APPEARS MORE RESTFUL. ABHISHEK TO DD
--- NOTE | 2020-08-05 04:20 | NUR ---
TOLERATED CPAP UNTIL 0; SWITCHED TO 5L PNC NOW
[2020-08-05 08:00] VITALS: BP 109/68
--- NOTE | 2020-08-05 16:22 | NUR ---
ASSUMED CARE AT 0700. PER REPORT PT SLEPT FAIRLY WELL LAST NIGHT. HE SEEMS MORE APPROPRIATE THIS MORNING, ALERT, PLESANT AND FOLLOW COMMANDS. ORIENTATED TO SELF AND PLACE. FORGETFUL, NOT IMPULSIVE. UP IN THE WC SINCE BREAKFAST AND UP AT THE NURSES' STATION. WEISS DRAINING ADEQ. APPETITE GOOD, LAST BM ON 08/04. ON 4L 02 WITH SAT ABOVE 92%. TOLERATES DIET AND MEDS. WOUND ON L ELBOW INTACT. NO OTHER CONCERNS, CONT TO MONITOR.
[2020-08-05 20:42] VITALS: BP 111/63
--- NOTE | 2020-08-06 00:30 | NUR ---
PT ALERT AND ORIENTED X 2, CONFUSED AT TIMES. CPAP ON DURING THE NIGHT. PT REMOVES CPAP FREQUENTLY. CONT 02 SAT MONITOR ON. DESATS WHEN HE REMOVED CPAP. NENA WRAPS C/D/I TO PAIGE LE'S. WEISS PATENT DRAINING DARK YELLOW URINE. PT TOOK HS MEDS IN PUDDING WITHOUT DIFFICULTY. PT DENIES PAIN OR DISCOMFORT. BED ALARM ON FOR SAFETY. PT HAS NOT BEEN IMPULSIVE SO FAR TONIGHT. PT APPEARS TO BE SLEEPING ON HOURLY ROUNDS.
[2020-08-06 06:24] LABS: HEMATOCRIT 37.6 % (42.0-52.0); HEMOGLOBIN 12.8 gm/dL (14.0-18.0); MCH 33.2 pg (26.0-34.0); MCHC 34.1 g/dL (28.0-37.0); MCV 97.1 fL (80.0-100.0); RBC 3.87 mil/uL (4.50-6.00); RDW 14.4 % (10.5-14.5); WBC 7.5 thou/uL (4.0-11.0)
[2020-08-06 06:34] LABS: CALCIUM 9.3 mg/dL (8.5-10.1); CREATININE 1.5 mg/dL (0.7-1.3); POTASSIUM 3.4 mmol/L (3.5-5.1)
[2020-08-06 08:00] VITALS: BP 112/79
--- NOTE | 2020-08-06 10:47 | NUR ---
WOUND CARE F/U SITTING UP IN CHAIR,ALERT, COOPERATIVE, SKIN TEAR L ELBOW HEALING, NO S/S INFECTION, SEE PROCESS INTERVENTION FOR WOUND DETAILS RECOMMENDATIONS CONT CURRENT TX XEROFORM AND COVER W/ BORDER FOAM, M/W/F AND PRN ACCOUNT ANALYST AWARE
--- NOTE | 2020-08-06 11:45 | NUR ---
ASSUMED CARE AT 0700. SLEPT FAIRLY WELL WITH HIS CPAP ON LAST NIGHT. PT APPEARS MORE APPROPRIATE THE DAY GOES BY AND SEEMS ORIENTATED X 4. NON IMPULSIVE AND FOLLOW COMMANDS. REPORTED PAIN IN THE BOTTOM, TREATED BY HYDROCODONE AND RECEIVED GOOD RELIEF. NO SIGNS OF REDNESS OR SORENESS ON THE BOTTOM. ON 5L 02. DENIES ANY INC SHORT OF AIR OR CHEST PAIN. WEISS DRAINING ADEQ. PROGRESSING WITH THERAPY, CONT TO MONITOR.
--- NOTE | 2020-08-06 14:06 | NUR ---
cm returned call from rd ceasar, information provide on know more of his progress after team tomorrow. cm active listen " bad day daughter in for double mastectomy"/. offered prayers for her daughter and their family. " thank you very much"/ceasar. will cont following as needed for dc needs.
[2020-08-06 20:30] VITALS: BP 83/47
[2020-08-06 21:16] VITALS: BP 136/84
--- NOTE | 2020-08-06 23:32 | NUR ---
PT ASSESSMENT COMPLETED AND VSS. MEDS GIVEN ORDERED AND WELL TOLERATED. FALL PRECAUTIONS IN PLACE. WEISS DRAINING DARK YELLOW URINE. PT ENJOYED SIPS OF HONEY THICK LIQUID. SAT WNL ON NC. CPAP ON AT HS AND TOLERATED. ASST WITH REPOSITION FOR COMFORT. PT DENIES NEEDS. SLEEPING WELL. WILL CONTINUE TO MONITOR FREQUENTLY.
[2020-08-07 08:21] VITALS: BP 112/79
--- NOTE | 2020-08-07 09:00 | NUR ---
PT SITTING IN RECLINER THIS AM. PT DENIES ANY PAIN. PT HAS OXYGEN ON 4L NC. PT HAS HONEY THICKENED LIQUIDS WITH PUREED DIET. PT TOLERATING WITHOUT ANY ISSUES. PT JOKES AROUND WITH STAFF. PT DID SAY HE WANTED A DIVORCE DUE TO NOT BEING ABOUT TO TAKE IT ANYMORE. PT LIVES WITH . PT HAS LYMPHEDEMA WRAPS TO LE ON LEFT. PT HAS WEISS TO DD WITH YELLOW URINE.
--- NOTE | 2020-08-07 11:36 | PLAN ---
[facility] [place] [address] REHAB UNIT PLAN OF CARE Name: PHILLIP RODRIGUEZ Room #: 512-P ADM IN M.R.#: [id number] Admission: 08/01/20 Attend Phys: Fly Tarango MD Discharge: Date of : 46 Report #: [id number] THIS REPORT FOR: cc: Brady Black MD, Neal A. MD Smithson,Fly Grewal MD ~ DOC #: [id number] Fly Tarango MD DATE OF SERVICE: 08/04/2020 PROGRESS NOTE AND OVERALL PLAN OF CARE HISTORY OF PRESENT ILLNESS: The patient was seen earlier and was in no distress. Temperature 36.6, pulse 96, respirations 20, and blood pressure 106/71. He is forgetful, follows commands. He is on honey thick liquids. He is also on pureed. We have been getting him up to the dining room for meals and he is able to feed himself. Transfers have been min assist with gait, mod assist 3 feet with a front-wheeled walker. In occupational therapy, lower body dressing is max assist with upper body dressing, max assist. He does have severe cognitive deficits. ASSESSMENT: 1. Acute multifactorial encephalopathy with concussion, status post fall. 2. Medical complexity with generalized debilitation. 3. Dysphagia. 4. Possible pneumonia and lower extremity cellulitis. 5. Hypoxic respiratory failure with chronic obstructive pulmonary disease. 6. Acute urinary retention. 7. Acute renal insufficiency. 8. Hypernatremia and hypokalemia. 9. Congestive heart failure. 10. Hypertension. 11. Hyperlipidemia. 12. Diabetes mellitus type 2. 13. History of lung CA, status post lobectomy. 14. History of pulmonary embolism. PLAN: The overall plan of care is based on the pre-admit screen and information garnered from therapy assessments. 1. Estimated length of stay is probably at least 2-1/2 weeks, potentially longer depending on progress. 2. Medical prognosis reasonably good. 3. Anticipated interventions include the interdisciplinary acute inpatient rehabilitation program. 4. Anticipated functional outcomes would be for the patient to become maximally independent in basic transfers, mobility and ADLs as well as improvement in [facility] [address] [place] [address] REHAB UNIT PLAN OF CARE Name: PHILLIP RODRIGUEZ Room #: 512-P ADM IN [facility].#: [id number] Admission: 08/01/20 Attend Phys: Fly Tarango MD Discharge: Date of : 46 Report #: [id number] cognition and swallowing, so he can return back to the home setting. He was using a walker prior. 5. Discharge destination would be back home with . He had used a cane up until the time period when he was getting weaker prior to coming to the hospital when he was utilizing a walker. 6. Expected therapy by discipline includes PT, OT and speech 1 hour per day each five days a week throughout the duration of the acute inpatient rehabilitation stay. ADDENDUM: The patient's prognosis for significant practical improvement within a reasonable period of time appears good. Given the patient's complex medical condition and risk of further medical complications, rehabilitation services could not be safely provided at a lower level of care such as a longterm facility. Fly Tarango MD DGS <ELECTRONICALLY SIGNED> By: Fly Tarango MD 08/07/20 1136 [id number] Fly Tarango MD /nt
--- NOTE | 2020-08-07 13:58 | NUR ---
team meeting, recommendation: lymphedema wraps. mod assist transfer from lower sitting, higher is stand by assist. mod/mod cog/memory. diet puree, honey thick. pills and bills. dc [facility] ( pt, ot, [facility] stim, nursing and sw). has o2 already.
--- NOTE | 2020-08-07 15:20 | NUR ---
NECTAR THICK LIQUID WAS FOUND ON PATIENT'S BEDSIDE TABLE. WASH HELPER EDUCATED PHYSICAL SCIENTIST'S HE IS ON HONEY THICK LIQUID; BOTH AIDES STATED THEY WERE TOLD PATIENT DRINKS NECTAR THICK LIQUID AT SHIFT CHANGE. WASH HELPER EDUCATED RE: SAFE SWALLOWING SIGN IN HIS ROOM STATING HONEY THICK LIQUID.
[2020-08-07 20:07] VITALS: BP 103/67
--- NOTE | 2020-08-08 02:28 | NUR ---
MEDS GIVEN WITH PUDDING WHILE STILL UP IN WHEELCHAIR, SMALL SIPS OF HONEY THICK LIQUIDS TO CLEAR MOUTH. SSI INSULIN. TO BED WITH 2P ASSIST AND GAIT BELT, BRIEF REMOVED AND MOISTURE BARRIER APPLIED, LOW AIR LOSS PUMP THERAPY WITH TURN TO LEFT. PATIENT MOANING DURING SLEEP AT 0200, TURNED TO RIGHT AT THAT TIME WITHOUT FULLY WAKING, HAS HAD HOME UNIT CPAP ON SINCE 2300 WITH 5L BLEED IN AND SATS GREATER THAN 90.
[2020-08-08 07:15] VITALS: BP 117/85
--- NOTE | 2020-08-08 09:55 | NUR ---
PT WORKING WITH SPEECH THERAPY THIS AM WITH TENDS UNIT. PT SWALLOWING FOOD AND HONEY THICKEN LIQUIDS WITHOUT COUGH. PT HAS OXYGEN ON 5L NC. PT HAS WEISS TO DD WITH TEA COLOR URINE. PT HAS LYMPHEDEMA LE THAT IS WRAPPED. PT DENIES ANY PAIN. NO BM AT THIS TIME.
--- NOTE | 2020-08-08 11:44 | NUR ---
WOUND CARE NOTE; SITTING UP IN CHAIR, ALERT, COOPERATIVE, WOUND L ELBOW HEALING, SCANT DRAINAGE, NO S/S INFECTION, PHOTO TAKEN, SEE PROCESS INTERVENTION FOR WOUND DETAILS RECOMMENDATIONS; CONT M/W/F WOUND CARE TO L ELBOW, XEROFORM GAUZE, BORDER FOAM JAMES, DIRECTOR OF STRATEGIC PROGRAMS AWARE
--- NOTE | 2020-08-08 13:46 | NUR ---
Nutrition followup: Pt eating 100% of meals on pureed 2 gm Na honey thicked liquids diet. Pt is complimentary of both liquids and foods. States he hasn't "met a bad one". ST conducting NMES and working with pt on upgrade trials. Fluctuating weights. Elbow wound is healing per wound care. Low nutrition risk
--- NOTE | 2020-08-08 14:04 | NUR ---
cm left [facility] list choice and senior blue book. therapy to call on question she has and thu with therapy in [phone]. " had jada in the past, will use them with new name eli elias "/. cm passed on to nurse projects manager time. referral sent to [facility].
--- NOTE | 2020-08-08 19:06 | NUR ---
PT UP TO BATHROOM X2 ASSIST TO HELP STAND UP AND PULL DOWN HIS PANTS. PT DID HAVE A MED SOFT BM. CALLED SARAI PALEOLOGY PROFESSOR FOR ORDERS TO ASSIST WITH CONSTIPATION AND HS MED.
[2020-08-08 20:04] VITALS: BP 112/53
--- NOTE | 2020-08-09 04:34 | NUR ---
LARGE FORMED STOOL AT SHIFT CHANGE ON THE TOILET WITH 1P ASSIST TO GET ON TOILET AND ANOTHER PERSON TO PULL DOWN HIS PANTS. PANTS OFF FOR THE NIGHT WHILE IN BED WITH LOW AIR LOSS PUMP, MOISTURE BARRIER TO BUTTOCKS, HAS BEEN TURNED SIDE TO SIDE 4 TIMES SINCE BACK TO BED. PUT HIS OWN CPAP ON AT HS AND LEFT IT ON 20 MINUTES. REPLACED WITH O2 5L PNC. AFTER BREATHING TREATMENT, HE REQUESTED PUTTING CPAP BACK ON WHERE IT REMAINED FROM 0100 UNTIL 0330. PULLED OFF AT THAT TIME, REPLACED WITH O2 5L PNC AND PULLED UP IN BED AGAIN. NOTING THAT IT IS NOW 0430, HE SAYS HE GOT A PRETTY GOOD NIGHT'S SLEEP. ABHISHEK TO DD. APPRECIATES HONEY THICK WATER WITH HEAD OF HEAD UP.
[2020-08-09 09:26] VITALS: BP 102/65
--- NOTE | 2020-08-09 11:45 | NUR ---
ASSUMED CARE AT 0700. ALERT AND ORIENTATED X 2, CONFUSED. DENIES ANY PAIN. UP WITH MOD ASSIST TO BATHROOM. ON 4L 02. COOPERATIVE AND FOLLOW SIMPLE COMMANDS. APPETITE GOOD, LAST BM 08/08. WEISS INTACT AND DRAINING TO DD. WOUND CARE TO R ELBOW DONE. PARTICIPATING WITH THERAPY AND PROGRESSING TOWARDS GOAL.
[2020-08-09 19:50] VITALS: BP 96/56
--- NOTE | 2020-08-10 00:06 | NUR ---
PT ALERT AND ORIENTED X 3. UP IN W/C ALL EVENING. TRANSFERRED TO BED AT HS WITH ASSIST X 1. CPAP ON AT THIS TIME. PT TOOK MEDS IN PUDDING WITHOUT DIFFICULTY. WEISS REMOVED AT 1700. HAS NOT VOIDED YET. BLADDER SCAN 310 AT 0000. PT DENIES PAIN OR DISCOMFORT. BED ALARM ON FOR SAFETY. PT CHECKED ON HOURLY ROUNDS.
[2020-08-10 05:42] LABS: ABSOLUTE NEUTROPHILS 7.6 thou/uL (1.4-8.2); BASOPHILS 0.5 % (0.0-2.0); EOSINOPHILS 1.8 % (0.0-3.0); HEMATOCRIT 37.9 % (42.0-52.0); HEMOGLOBIN 12.9 gm/dL (14.0-18.0); LYMPHOCYTES 6.6 % (24.0-44.0); MCH 32.9 pg (26.0-34.0); MCHC 34.2 g/dL (28.0-37.0); MCV 96.4 fL (80.0-100.0); MONOCYTES 7.9 % (1.0-8.0); PLATELET COUNT 246 thou/uL (150-400); POLYS 83.2 % (36.0-66.0); RBC 3.93 mil/uL (4.50-6.00); RDW 14.4 % (10.5-14.5); WBC 9.1 thou/uL (4.0-11.0)
[2020-08-10 05:55] LABS: CALCIUM 9.3 mg/dL (8.5-10.1); CREATININE 1.5 mg/dL (0.7-1.3); MAGNESIUM 2.1 mg/dL (1.8-2.4); POTASSIUM 3.5 mmol/L (3.5-5.1)
[2020-08-10 08:00] VITALS: BP 111/67
--- NOTE | 2020-08-10 10:20 | NUR ---
WOUND CARE F/U; UP IN CHAIR, ALERT, COOPERATIVE, L ELBOW WOUND HEALING, NO S/S INFECTION, SCANT DRAINAGE,PINK VIABLE TISSUE PRESENT, SEE PROCESS INTERVENTION FOR WOUND DETAILS RECOMMENDATIONS; CONT CURRENT TX, XEROFORM GAUZE, COVER W/ BORDER FOAM DRSG CHANGE M/W/F, AND PRN RURAL MAIL CONTRACTOR AWARE
--- NOTE | 2020-08-10 11:45 | NUR ---
ASSUMED CARE AT 0700. ALERT AND AWAKE. SEEMS MORE TIRED AND CONFUSED TODAY. HAVING DIFFICULTY GETTING OUT FROM BED TO AND NEEDED 2 PERSON ASSIST. NOT VOIDED SINCE 0300 LAST NIGHT. PT REPORTED NO URGE TO URINATE. ATTEMTPED COUPLE OF TIMES TO BATHROOM TO VOID AND IS UNSUCCESSFUL. LATOYA AND SARAI BUTTER GRADER AWARE AND ORDERS RECEIVED FOR CXR AND LASIX PO X 1. THE DAY PROGRESSED, PT FEELING BETTER AND SLIGHTLY STRONGER. BLADDER SCAN DONE AND SHOWED 385ML AND WEISS REPLACED AND TOLERATED PROCEDURE. ABLE TO SELF FEED WITHOUT ANY DIFFICULTY, STILL HAS TREMORS. WOUND CARE TO L ELBOW DONE. ON 4L 02. PARTICIPATING IN THERAPY WITH SLOW PROGRESSION. CONT TO MONITOR.
[2020-08-10 20:00] VITALS: BP 126/67
--- NOTE | 2020-08-11 01:01 | NUR ---
PT ASSESSMENT COMPLETED AND VSS. MEDS GIVEN ORDERED AND WELL TOLERATED. FALL PRECAUTIONS IN PLACE. ASST WITH REPOSITION FOR COMFORT. WEISS DRAINING MODERATE AMOUNT OF URINE. CPAP ON AT HS. SAT WNL ON CONT SAT MONITOR. PT ANXIOUS AND CALLING FREQUENTLY. PROVIDED MUCH EMOTIONAL SUPPORT. SLEEPING MEDICATION HELFPUL. WILL CONTINUE TO MONITOR FREQUETNLY.
[2020-08-11 08:00] VITALS: BP 94/46
--- NOTE | 2020-08-11 08:38 | NUR ---
PT SITTING UP IN W/C THIS AM. PT HAS WRAPS TO LOWER EXT. PT HAS OXYGEN ON 5L NC. PT NEEDS ASSISTANCE WITH OPENING ITEMS AND FEEDING DUE TO TREMORS. PT STATED HE DIDN'T HAVE ANY FEELING IN RT FOOT MORE THAN LEFT ON IS TOES. PT LUNGS CLEAR. PT IS TOLERATING HONEY THICK LIQUIDS. PT ATE 100% OF BREAKFAST.
[2020-08-11 20:18] VITALS: BP 100/62
--- NOTE | 2020-08-12 04:59 | NUR ---
PT TRANSFERRING FROM WC TO BED WITH ASSIST X1 AND IS TOLERATING FAIR. DENIES PAIN. RESTING COMFORTABLY. NO NEEDS VOICED. CALL LIGHT WITHIN REACH. FREQUENT OBSERVATION.
[2020-08-12 07:30] VITALS: BP 104/54
--- NOTE | 2020-08-12 10:58 | NUR ---
PT SITTING UP IN W/C FOR BREAKFAST. PT NEEDED ASSISTANCE THIS AM TO GET LEGS OFF BED AND ALSO TO STAND. PT LOWER EXT SWOLLEN AND HAVE TUBIGRIPS ON THEM. PT HAS OPEN ABRASION TO LEFT THUMB AND TO LEFT FOREARM. PT HAS OXYGEN ON 5L NC. PT HAS CPAP AT HS HE WEARS AND HAS 5L BLED THROUGH THE MACHINE.
--- NOTE | 2020-08-12 12:51 | HC ---
[facility] [place] [address] CONSULTATION Name: PHILLIP RODRIGUEZ Room #: 512-P ADM IN M.R.#: [id number] Admission: 08/01/20 Attend Phys: Fly Tarango MD Discharge: Date of : 46 Report #: [id number] THIS REPORT FOR: cc: Brady Black MD, Neal A. MD Deutch, Neal B. PhD ~ DOC #: [id number] Brady Hunter, PhD DATE OF SERVICE: 08/05/2020 NEUROBEHAVIORAL STATUS EXAMINATION ATTENDING PHYSICIAN: Fly Tarango MD HELPER ELECTRICAL: Brady Hunter, PhD. CLINICAL PRESENTATION: The patient is a 69-year-old male admitted to the hospital on 07/26/2020 with acute confusion and weakness that was of about 1 week duration. He was diagnosed with to have severe urinary retention. His history includes COPD and 4 liters of oxygen continual, medical problem list upon admission included community-acquired pneumonia, COPD exacerbation, delirium, hypoxia, traumatic hematoma of the right foot and vertigo. His assessment on admission to the rehabilitation unit included acute multifactorial encephalopathy, concussion status post fall prior to admission, medical complexity with debilitation and possible Parkinson disease, dysphagia, hypoxic respiratory failure, possible PNA and left lower extremity cellulitis, acute urinary retention, ARTEMIO, hypernatremia and hypokalemia, CHF, hypertension, hyperlipidemia, type 2 diabetes mellitus and history of lung cancer, status post lobectomy. A complete description of his medical condition and history can be found in his medical record. Neuropsychological consultation was requested to provide assistance in the assessment of cognitive and emotional status and provide recommendations and services. Prior to this most recent admission, the patient was living at home with his . He reports being and having had 2 children. 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 He discontinued driving about one and a half years ago. He stated that his had taken over management of medication and bills. TECHNIQUES UTILIZED: Clinical interview, review of medical records, staff consultation and behavioral observations, mini-mental status exam 2 standard version, clock drawing attempted and verbal fluency assessment. EXAMINATION FINDINGS: The patient was alert and cooperative with the assessment. He had difficulty with verbal expression, which was delayed and [facility] [address] [place] [address] CONSULTATION Name: PHILLIP RODRIGUEZ JD Room #: 512-P [facility] IN .R.#: [id number] Admission: 08/01/20 Attend Phys: Fly Tarango MD Discharge: Date of : 46 Report #: [id number] marked by hesitation and stutter. Symptoms included difficulty with memory and word finding. He does not report problems with sleep, appetite, subjective anxiety or depression. No previous history of treatment for depression is reported. There is no evidence of thought disorder. He does not report auditory or visual hallucinations. Auditory comprehension was satisfactory. Performance on the MMSE 2 brief version was extremely low with the raw score of 12/16. He was 3/3 for initial registration, although frequent repetition was necessary. He was 4/5 for orientation to time and 3/[address] He was 1/3 for immediate recall of 3 items after a brief time delay and distraction. Performance on the MMSE 2 standard version was extremely low with a raw score of 21/30. He was 1/5 for serial sevens, 2/2 for naming, 1/1 for repetition, 3/3 for auditory comprehension. He could read and follow a single command. Because of a severe hand tremor, he was unable to copy a simple geometric design. Dictation was normal. Verbal fluency assessment reveals mild deficits in letter fluency and more severe deficits in category fluency. Letter fluency with a T-score of 40th percentile, rank of 16. Category fluency with a T score of 23, which was less than 1%. Overall, total fluency was at the 2nd percentile and in the borderline range. The patient is presenting with deficits in neurocognitive functioning. Impairment in immediate recall and executive functioning along with attention and concentration are suggested. DIAGNOSTIC IMPRESSION: Neurocognitive disorder -- extent to be determined, likely in the moderate range. Unspecified anxiety disorder. RECOMMENDATIONS: The patient will benefit from continued speech therapy to assist with development of compensatory strategies. Continued help will be necessary from family in order to assist in the management of ADLs. His anxiety will likely diminish with increased supervision and structure upon his return home. Thank you very much for allowing me to provide consultation on this patient. Brady Hunter, PhD [address] [address] CONSULTATION Name: JENNIFERPHILLIPTELLY MILES Room #: 512-P [facility] IN M.R.#: [id number] Admission: 08/01/20 Attend Phys: Fly Tarango MD Discharge: Date of : 46 Report #: [id number] NBD/AMI <ELECTRONICALLY SIGNED> By: Brady Hunter, PhD 08/12/20 [id number] Brady Hunter, PhD /nt
--- NOTE | 2020-08-12 15:30 | NUR ---
RT BROUGHT A NEW MASK TO TRY TONIGHT FOR CPAP. PT HEAD GEAR VELCRO IS WORN. PT AT BEDSIDE AND STATED THAT AT HOME HE WEARS THE NASAL CANNULA 5L AND ALSO HAS CPAP ON 5L. SHE SAID HE FEELS LIKE HE IS GETTING ENOUGH OXYGEN AT HOME WITH THAT. ENCOURAGED PT TO HAVE ONLY CPAP FOR OXYGEN 5L SO THE NASAL PIECE WOULD HAVE A BETTER SEAL. WANTED THIS RT TO CALL HIS COMPANY TO ORDER A NEW HEAD GEAR. RT SAID THAT SHE NEEDED TO CALL HIS COMPANY WHEN SHE GETS HOME, WAS FRUSTRATED WITH THAT ANSWER. SHE WANTED TO TAKE THE ONE HE HAS ON FROM HERE, HE EXPLAINED THAT THEY ARE DIFFERENT FROM THE ONES AT HOME.
[2020-08-12 19:38] VITALS: BP 109/69
--- NOTE | 2020-08-12 23:04 | NUR ---
PT ALERT AND ORIENTED X 2, CONFUSED AT TIMES. CPAP APPLIED AT HS PER RT. NENA WRAPS INTACT TO BILAT LE'S. WEISS PATENT DRAINING CLEAR YELLOW URINE. PT DENIES PAIN OR DISCOMFORT. BED ALARM ON FOR SAFETY. PT CHECKED ON HOURLY ROUNDS. PT CALLS OUT FREQUENTLY FOR VARIOUS THINGS.
[2020-08-13 07:15] VITALS: BP 112/68
--- NOTE | 2020-08-13 10:50 | NUR ---
WOUND CARE F/U ALERT, COOPERATIVE, SITTING UP IN CHAIR, WOUND R ELBOW HEALED, LEFT OPEN TO AIR, NO NEW WOUNDS, WILL DC WOUND CARE CONSULT, RECONSULT IF NEEDED GENERAL PRACTICE AWARE
--- NOTE | 2020-08-13 13:00 | NUR ---
ASSUMED CARE AT 0700. DID NOT SLEEP WELL LAST NIGHT DESPITE GIVEN MELATONIN. INC CONFUSION FARHAT AT NIGHT. DR BERNARD NOTIFIED FOR SLEEP AID. ALERT AND ORIENTATED X 1-2. APPETITE GOOD, HAD A BM TODAY, ON MIRALAX. WEISS DRAINING ADEQ. BLE EDEMA WITH LYMPHEDEMA WRAP IN PLACE. 02 AT 5L. REPORTS SHORT OF BREATH AND ANXIETY WITH LYING IN BED AND MUCH BETTER WHEN UP IN THE WC. PARTICIPATE WITH THERAPY. PT CONCERNS ABOUT DC PLANNING.
--- NOTE | 2020-08-13 14:27 | NUR ---
cm notified via voice message from physical therapy that she was able to visit with , and if he not at her standers to come home, might need to look into other option, has to have repeat mammogram before he come home on thur, she is not able to provide any transfer assist, cant lift, or pull him up."/ phone call with therapy. rd is needed diff amount of assist with transfer. will cont following as needed for dc needs.
[2020-08-13 19:55] VITALS: BP 100/58
--- NOTE | 2020-08-14 02:34 | NUR ---
STARTED OFF SHIFT WITH BOWEL MOVEMENT ON TOILET, TO BED AFTER MEDS GIVEN WHILE STILL IN WHEELCHAIR. PATIENT TAKING HONEY THICK WATER WHILE SITTING UP. O2 5L, TRIED CPAP WITH 5L BLEED-IN USING HOME UNIT, BUT TOOK IT OFF AT MIDNIGHT, NASAL CANULA PLACED THEN AND REPLACED NOW. LOW AIR LOSS PUMP TO BED. MOANS IN HIS SLEEP.
[2020-08-14 05:53] LABS: ABSOLUTE NEUTROPHILS 5.9 thou/uL (1.4-8.2); BASOPHILS 0.6 % (0.0-2.0); EOSINOPHILS 2.6 % (0.0-3.0); HEMATOCRIT 35.3 % (42.0-52.0); LYMPHOCYTES 7.9 % (24.0-44.0); MONOCYTES 8.9 % (1.0-8.0); PLATELET COUNT 235 thou/uL (150-400); RBC 3.63 mil/uL (4.50-6.00); RDW 14.6 % (10.5-14.5); WBC 7.4 thou/uL (4.0-11.0)
[2020-08-14 05:56] LABS: CALCIUM 9.3 mg/dL (8.5-10.1); CREATININE 1.5 mg/dL (0.7-1.3); MAGNESIUM 2.3 mg/dL (1.8-2.4)
[2020-08-14 07:47] VITALS: BP 115/76
--- NOTE | 2020-08-14 11:00 | NUR ---
ASSUMED CARE AT 0700. ALERT AND ORIENTATED X 2. COMPLAINS OF BEING SHORT OF AIR WITH EXERTION AND ON 5L 02. LUNGS DIM, ABDOMEN DISTENDED, HAD A BM YESTERDAY. WEISS DRAINING TO DD WITH ADEQ OUTPUT. LYMPHEDEMA TREATMENT DONE THIS MORNING WITH BOTH LE IN TUBIGRIPS. APPETITE HAS BEEN GOOD. PARTICIPATES WITH THERAPY MUCH TOLERATED.
--- NOTE | 2020-08-14 12:52 | NUR ---
team meeting, had video swallow today, diet honey thick liquids, puree vs mech soft. cont dc [facility] vs skilled [facility], depend on how training goes with , then hh (pt, ot, st with vital stim, nurse and sw) with eli eilas before make choice on skilled or not.
[2020-08-14 20:04] VITALS: BP 117/79
--- NOTE | 2020-08-15 03:32 | NUR ---
TOLERATING MEDS WHOLE WITH APPLESAUCE AND SIPS OF HONEY THICK LIQUIDS, IS AWARE THAT HE IS NPO SINCE MIDNIGHT FOR SCHEDULED ULTRASOUND. LEGS ELEVATED WITH LYMPHEDEMA WRAPS.
[2020-08-15 07:15] VITALS: BP 108/55
--- NOTE | 2020-08-15 11:48 | NUR ---
ASSUMED CARE AT 0700. PAITENT IS ALERT AND ORIENTED X2. PATIENT ROBERTSON'S, CONSTRUCTION FRAMER ARE EQUAL. PAIENT CONTINUES ON HONEY THICK LIQUIDS AND IS BEING SEEN BY S.T. PATIENT ABD IS SOFT WITH BSX4. PATIENT HAD BM TODAY. PATIENT WAS NPO THIS A.M. FOR ABD SONOGRAM. RESULTS OF SONO UNREMARKABLE. PATIENT CONTINUES TO HAVE LYMPH WRAPS CHANGED BY O.T. HERE FOR TRAINING. PLAN D/C TO SKILLED IN A.M. FALL AND SAFETY PROTOCOLS IN PLACE. DENIES PAIN AT THIS TIME. CONTINUES TO PROGRESS TOWARDS D/C GOALS. WILL CONTINUE TO MONITER.
--- NOTE | 2020-08-15 13:16 | NUR ---
Nutrition followup: Pt continues to eat 100% of meals on pureed 2 gm Na, honey thick liquids diet. Had videoswallow yesterday. ST is working on possible upgrade trials of [facility] soft. Variable weights per bedscale. Planned D/C 08/17. Consider low nutrition risk.
[2020-08-15 19:50] VITALS: BP 102/68
--- NOTE | 2020-08-15 23:14 | NUR ---
PT ASSESSMENT COMPLETED AND VSS. MEDS GIVEN ORDERED AND WELL TOLERATED. FALL PRECAUTIONS IN PLACE. ASST WITH REPOSITION FOR COMFORT. LYMPH EDEMA WRAPS ON. WEISS DRAINING MODERATE AMOUNT OF URINE. PT STATED THAT HE WAS REALLY GOING TO MISS EVERYONE HERE AND THAT HE DID NOT WANT TO LEAVE. HE WAS TEARFUL. PT IS SCARED ABOUT GOING TO A NEW FACILITY. PROVIDED MUCH EMOTIONAL SUPPORT. SLEEP MEDICATION GIVEN AND HELPFUL. CPAP ORDERED FOR HS. WILL CONTINUE TO MONITOR FREQUENTLY.
[2020-08-16 08:00] VITALS: BP 95/56
[2020-08-16 08:36] VITALS: BP 102/68
[2020-08-16] MEDS ORDERED: BENADRYL ALLERG25 MG PO (09:21)
[2020-08-16] MEDS ORDERED: ACETAMINOPHEN325 M1 PO (09:22)
[2020-08-16] MEDS ORDERED: TRAZODONE HCL50 MG PO (09:23)
[2020-08-16] MEDS ORDERED: GABAPENTIN 100100 MG PO (09:23)
[2020-08-16] MEDS ORDERED: DEPAKOTE 250MG250 M1 PO (09:23)
[2020-08-16] MEDS ORDERED: PROTONIX 20 MG20 M1 PO (09:24)
[2020-08-16] MEDS ORDERED: PULMICORT0.5 MG/21 INH (09:24)
[2020-08-16] MEDS ORDERED: MELATONIN5 M1 PO (09:25)
[2020-08-16] MEDS ORDERED: HUMALOG100 UNIT/1 SUBQ (09:25)
--- NOTE | 2020-08-16 10:47 | NUR ---
ASSUMED CARE AT 0700. DID NOT SLEEP WELL LAST NIGHT, REPORTED WAS FEELING ANXIOUS WITH DC PLANNING TODAY. ALERT AND ORIENTATED TO SELF AND PLACE. FOLLOW INSTRUCTIONS. PLEASANT AND COOPERATIVE. APPETITE GOOD, MEDS CRUSHED IN APPLE SAUCE, HAD A BM TODAY. BLOOD SUGAR 137. PLAN FOR DC TODAY TO [facility]. COVID TEST NEGATIVE. ON 5L 02. WEISS IN SITU AND DRAINING TO DD.
== END 2020-08-16 13:20 | DRG 91 ==
PROVIDERS: Internal Medicine; Nurse Practitioner; Nurse Practitioner Family; ADMIT Physical Medicine & Rehabilitation; ATTEND Physical Medicine & Rehabilitation
DX: G92 Toxic encephalopathy (principal); J69.0 Pneumonitis due to inhalation of food and vomit; J96.21 Acute and chronic respiratory failure with hypoxia; A41.9 Sepsis, unspecified organism; R65.20 Severe sepsis without septic shock; E87.0 Hyperosmolality and hypernatremia; N17.9 Acute kidney failure, unspecified; I13.0 Hypertensive heart and chronic kidney disease with heart failure and stage 1 through stage 4 chronic kidney disease, or unspecified chronic kidney disease; I42.9 Cardiomyopathy, unspecified; E46 Unspecified protein-calorie malnutrition; L03.115 Cellulitis of right lower limb; I48.21 Permanent atrial fibrillation; D68.59 Other primary thrombophilia; R53.81 Other malaise; R33.9 Retention of urine, unspecified; R13.10 Dysphagia, unspecified; E87.6 Hypokalemia; I50.9 Heart failure, unspecified; E78.5 Hyperlipidemia, unspecified; Z20.822 Contact with and (suspected) exposure to COVID-19; S06.0X0A Concussion without loss of consciousness, initial encounter; W18.39XA Other fall on same level, initial encounter; J44.9 Chronic obstructive pulmonary disease, unspecified; F41.9 Anxiety disorder, unspecified; E11.22 Type 2 diabetes mellitus with diabetic chronic kidney disease; N18.9 Chronic kidney disease, unspecified; R41.0 Disorientation, unspecified; I87.2 Venous insufficiency (chronic) (peripheral); G47.00 Insomnia, unspecified; G47.30 Sleep apnea, unspecified; G20 Parkinson's disease; Y99.8 Other external cause status; Y93.89 Activity, other specified; Y92.89 Other specified places as the place of occurrence of the external cause; Z85.118 Personal history of other malignant neoplasm of bronchus and lung; Z90.2 Acquired absence of lung [part of]; Z86.711 Personal history of pulmonary embolism; Z88.8 Allergy status to other drugs, medicaments and biological substances; Z91.048 Other nonmedicinal substance allergy status; Z68.32 Body mass index [BMI] 32.0-32.9, adult; Z79.01 Long term (current) use of anticoagulants; Z99.81 Dependence on supplemental oxygen
CPT/HCPCS: 10112

== ENCOUNTER 2020-08-17 18:34 | Inpatient (IN) | payer OTHER ==
[~2020-08-17] VITALS: Ht 177.8 cm; Wt 117.2 kg
--- NOTE | ~2020-08-17 | EMS ---
[facility] [address] [place] [address] EMS Patient Care Report Name: PHILLIP RODRIGUEZ Room #: REG ROSMERY Scales#: [id number] Admission: 08/17/20 Attend Phys: Discharge: Date of : 46 Report #: [id number] THIS REPORT FOR: //name// Report Transmitted: 08/17/2020 19:[address] [facility] MED-ACT Incident [id number] @ 08/17/2020 17:34 Incident Location [address] [place] [address] Patient PHILLIP RODRIGUEZ Male, 69 Years 1950 Patient Address [address] [place] [address] Patient History Congestive Heart Failure (CHF),Chronic Obstructive Pulmonary Disease (COPD),Hypertension (HTN),Lung Cancer,Atrial Fibrillation, Patient Allergies No known allergies, Patient Medications Metformin, Victoza, Torsemide, Omeprazole, Lexapro, Xarelto, Cardizem, Lipitor, Chief Complaint Difficult to arouse Disposition Transported No Lights/[place] Reason Falls Transported To [facility] Narrative Staff called 911 after they had difficulty arousing the pt. while he was sleeping in his wheelchair. They were performing frequent neuro assessments on [facility] [address] [place] [address] EMS Patient Care Report Name: PHILLIP RODRIGUEZ Room #: REG ER Yordy#: [id number] Admission: 08/17/20 Attend Phys: Discharge: Date of : 48 Report #: [id number] the pt. today after he sustained a fall this morning around 05:00 hrs. He acquired a small abrasion on his forehead; he was not evaluated at an ED. The pt. has been at the above facility for around 24 hrs. He came from [facility] where he was admitted for metabolic encephalopathy, and hypoxia. He takes Xarelto for a-fib. Due to his short stay at the facility, staff is not sure of his baseline health status. The pt. denies any complaints. He states that he was napping this afternoon; he says that he is not sleeping well because he has been without his CPAP machine. He denies headache, neck pain, dyspnea, weakness, loss of consciousness after the fall. No other complaints noted. Arrived to find the pt. seated in a wheelchair. He was alert and did not appear to be in any obvious distress. The pt's speech sounded slurred. He denies difficulty speaking and believes his slurring was due to a dry mouth. Refer to the exam section for other physical findings. T(x)- monitoring only Outcome- No changes were noted in the pt's condition upon arrival at [facility]. Initial Vitals @17:57P: 81,SpO2: 96,NH Suspected: false @17:57P: 88,BP: 109/77,SpO2: 95, @18:01P: 118,SpO2: 93,NH Suspected: false @18:02P: 121,R: 16,BP: 121/45,GCS: 15,SpO2: 93,Revised Trauma: 12, @17:42P: 64,R: 16,BP: 107/71,Pain: 0/10,GCS: 15,Temp: 98F,Glucose: 151,SpO2: 95,Revised Trauma: 12, Assessments @17:45MENTAL:No Abnormalities,SKIN:HEENT:Eyes: Left Pupil: 4-mm,Eyes: Right Pupil: 4-mm,LUNG SOUNDS:ABDOMEN:PELVIS//GI:EXTREMITIES:Left Arm: Edema,Right Arm: Edema,Left Leg: Edema,Right Leg: Edema,PULSE:NEURO:Slurred Speech, Impression Generalized Weakness Procedures @18:0112-Lead ECGResponse: UnchangedSucceeded Timeline 17:32,Call Received 17:32,Psap Call 17:34,Dispatched 17:34,En Route 17:39,On Scene 17:41,At Patient [address] [address] EMS Patient Care Report Name: PHILLIP RODRIGUEZ Room #: REG Yordy#: [id number] Admission: 08/17/20 Attend Phys: Discharge: Date of : 46 Report #: [id number] 17:42,BP: 107/71 M,PULSE: 64,RR: 16 R,SPO2: 95 Ox,ETCO2: ,B,PAIN: 0,GCS: 15, 17:57,BP: / M,PULSE: 81,RR: R,SPO2: 96 Ox,ETCO2: ,BG: ,PAIN: ,GCS: , 17:57,BP: 109/77 M,PULSE: 88,RR: R,SPO2: 95 Ox,ETCO2: ,BG: ,PAIN: ,GCS: , 17:58,Depart Scene 18:01,12-Lead ECG,Response: UnchangedSucceeded, 18:01,BP: / M,PULSE: 118,RR: R,SPO2: 93 Ox,ETCO2: ,BG: ,PAIN: ,GCS: , 18:02,BP: 121/45 M,PULSE: 121,RR: 16 R,SPO2: 93 Ox,ETCO2: ,BG: ,PAIN: ,GCS: 15, 18:08,At Destination 18:42,Call Closed Disclaimer v1.1 Copyright 2020 [employer] This EMS Care Summary contains data elements from the applicable legal record (which may be displayed differently). It is designed to provide pertinent information for the following purposes: continuity of care, clinical quality, and state data reporting. The complete legal record is available to ED staff and administrators of the receiving hospital in [employer]'s Patient Tracker. All data is provided "as is."
[~2020-08-17 18:34] MED LIST changes: +ACETAMINOPHEN325 M1 PO; +BENADRYL ALLERG25 MG PO; +DEPAKOTE 250MG250 M1 PO; +FLOMAX0.4 MG PO; +GABAPENTIN 100100 MG PO; +HUMALOG100 UNIT/1 SUBQ; +HYDROCODON-ACE1 EAC7 PO; +MELATONIN5 M1 PO; +PROTONIX 20 MG20 M1 PO; +PULMICORT0.5 MG/21 INH; +TRAZODONE HCL50 MG PO
[2020-08-17 18:44] VITALS: BP 101/45
[2020-08-17 19:12] LABS: ABSOLUTE NEUTROPHILS 5.4 thou/uL (1.4-8.2); BASOPHILS 0.5 % (0.0-2.0); EOSINOPHILS 1.6 % (0.0-3.0); HEMATOCRIT 37.5 % (42.0-52.0); HEMOGLOBIN 12.7 gm/dL (14.0-18.0); LYMPHOCYTES 6.8 % (24.0-44.0); MCH 32.8 pg (26.0-34.0); MCV 96.4 fL (80.0-100.0); MONOCYTES 8.5 % (1.0-8.0); PLATELET COUNT 225 thou/uL (150-400); POLYS 82.6 % (36.0-66.0); RBC 3.89 mil/uL (4.50-6.00); RDW 14.5 % (10.5-14.5); WBC 6.5 thou/uL (4.0-11.0)
[2020-08-17 19:18] LABS: CALCIUM 9.6 mg/dL (8.5-10.1); CREATININE 1.5 mg/dL (0.7-1.3); POTASSIUM 3.1 mmol/L (3.5-5.1)
[2020-08-17 19:23] LABS: ALBUMIN 2.9 g/dL (3.4-5.0); DIRECT BILIRUBIN 0.3 mg/dL (<0.1-0.2); TOTAL BILIRUBIN 0.7 mg/dL (0.2-1.0); TOTAL PROTEIN 6.6 g/dL (6.4-8.2)
[2020-08-17 19:26] LABS: APTT 30.2 Seconds (24.5-32.8); INR 1.29; PROTIME 13.9 Seconds (10.5-12.1)
[2020-08-17 20:25] LABS: URINE BILIRUBIN NEGATIVE (Negative); URINE BLOOD 3+ (Negative); URINE CLARITY CLEAR; URINE COLOR YELLOW; URINE GLUCOSE-RANDOM* NEGATIVE (Negative); URINE KETONES TRACE (Negative); URINE LEUKOCYTES-REFLEX NEGATIVE (Negative); URINE NITRITE-REFLEX NEGATIVE (Negative); URINE PROTEIN (DIPSTICK) TRACE (Negative); URINE SPECIFIC GRAVITY >= 1.030 (1.005-1.035); URINE UROBILINOGEN 0.2 E.U./dl (0.2-1.0)
[2020-08-17 20:36] LABS: MUCUS 0-3 Light strn/LPF (None Seen); SQUAMOUS 0-3 Few /LPF (0-3)
[2020-08-17 20:38] LABS: BACTERIA-REFLEX 1-9 Few /HPF (None Seen); URINE WBC-REFLEX 6-15 Few /HPF (0-5)
[2020-08-17 20:39] LABS: CASTS None Seen /LPF (None Seen); CRYSTALS None Seen /LPF (None Seen); YEAST-REFLEX Present (None Seen)
[2020-08-17 20:40] LABS: URINE RBC >20 Many /HPF (NONE SEEN)
[2020-08-17 21:28] LABS: BE(vivo) 2.5 mmol/L (-2 to +3); HCO3 27.6 mmol/L (22.0-26.0); PCO2 44.6 mmHg (35.0-45.0); pH 7.409 (7.360-7.450); sO2 95.4 % (92.0-98.0)
[2020-08-17 22:05] VITALS: BP 109/62
[2020-08-17 23:12] VITALS: BP 108/76
[2020-08-18 04:53] LABS: HEMATOCRIT 35.3 % (42.0-52.0); HEMOGLOBIN 12.2 gm/dL (14.0-18.0); MCH 33.5 pg (26.0-34.0); MCHC 34.7 g/dL (28.0-37.0); MCV 96.5 fL (80.0-100.0); RBC 3.66 mil/uL (4.50-6.00); RDW 14.7 % (10.5-14.5); WBC 6.4 thou/uL (4.0-11.0)
[2020-08-18 05:05] LABS: CALCIUM 9.4 mg/dL (8.5-10.1); CREATININE 1.4 mg/dL (0.7-1.3); POTASSIUM 3.5 mmol/L (3.5-5.1)
[2020-08-18 05:18] VITALS: BP 93/62
[2020-08-18 07:45] VITALS: BP 100/53
[2020-08-18 15:10] VITALS: BP 95/60
[2020-08-18 20:15] VITALS: BP 110/56
[2020-08-19 04:27] LABS: HEMATOCRIT 36.3 % (42.0-52.0); HEMOGLOBIN 12.7 gm/dL (14.0-18.0); MCH 33.8 pg (26.0-34.0); MCHC 34.9 g/dL (28.0-37.0); MCV 96.8 fL (80.0-100.0); RBC 3.75 mil/uL (4.50-6.00); RDW 14.7 % (10.5-14.5); WBC 5.3 thou/uL (4.0-11.0)
[2020-08-19 04:38] LABS: CALCIUM 8.9 mg/dL (8.5-10.1); CREATININE 1.4 mg/dL (0.7-1.3); POTASSIUM 3.3 mmol/L (3.5-5.1)
[2020-08-19 04:45] VITALS: BP 105/55
[2020-08-19 08:25] VITALS: BP 111/73
[2020-08-19 11:55] VITALS: BP 124/59
[2020-08-19 16:10] VITALS: BP 98/63
[2020-08-19 20:38] VITALS: BP 94/59
[2020-08-20] VITALS (9 sets, daily range): BP systolic 94–138; BP diastolic 61–75
[2020-08-21 03:50] VITALS: BP 98/60
[2020-08-21 05:36] LABS: ALBUMIN 2.8 g/dL (3.4-5.0); CALCIUM 8.7 mg/dL (8.5-10.1); CREATININE 1.2 mg/dL (0.7-1.3); PHOSPHORUS 3.6 mg/dL (2.5-4.9); POTASSIUM 3.5 mmol/L (3.5-5.1)
[2020-08-21 08:05] VITALS: BP 99/64
[2020-08-21 08:15] VITALS: BP 99/64
[2020-08-21 15:50] VITALS: BP 99/61
[2020-08-21 16:15] VITALS: BP 99/61
[2020-08-21 19:20] VITALS: BP 110/63
[2020-08-22 04:33] VITALS: BP 113/65
[2020-08-22 05:24] LABS: CALCIUM 8.9 mg/dL (8.5-10.1); CREATININE 1.4 mg/dL (0.7-1.3); PHOSPHORUS 3.3 mg/dL (2.5-4.9); POTASSIUM 3.5 mmol/L (3.5-5.1)
[2020-08-22 07:43] VITALS: BP 114/62
[2020-08-22] MEDS ORDERED: CEFUROXIME250 MG PO (08:32)
[2020-08-22] MEDS ORDERED: LASIX 40 MG TAB40 MG PO (08:33)
[2020-08-22] MEDS ORDERED: KLOR-CON 1010 MEQ PO (08:34)
[2020-08-22 15:25] VITALS: BP 95/55
[2020-08-22 19:38] VITALS: BP 108/52
[2020-08-23 04:08] VITALS: BP 102/60
[2020-08-23 08:01] VITALS: BP 153/101
[2020-08-23 08:15] VITALS: BP 153/101
== END 2020-08-23 16:15 | DRG 291 ==
LOC: ER 18:34 → 2N 22:07 → EROBS 22:07 → 2N 22:40
PROVIDERS: Emergency Medicine; Hospitalist; Internal Medicine; ADMIT Hospitalist; ATTEND Hospitalist
DX: I11.0 Hypertensive heart disease with heart failure (principal); J81.0 Acute pulmonary edema; L03.116 Cellulitis of left lower limb; J96.11 Chronic respiratory failure with hypoxia; I50.33 Acute on chronic diastolic (congestive) heart failure; J44.9 Chronic obstructive pulmonary disease, unspecified; E11.9 Type 2 diabetes mellitus without complications; G47.00 Insomnia, unspecified; I50.9 Heart failure, unspecified; E78.5 Hyperlipidemia, unspecified; R53.81 Other malaise; R13.10 Dysphagia, unspecified; R33.9 Retention of urine, unspecified; G20 Parkinson's disease; F02.80 Dementia in other diseases classified elsewhere, unspecified severity, without behavioral disturbance, psychotic disturbance, mood disturbance, and anxiety; Z88.1 Allergy status to other antibiotic agents; Z88.8 Allergy status to other drugs, medicaments and biological substances; Z79.01 Long term (current) use of anticoagulants; Z85.118 Personal history of other malignant neoplasm of bronchus and lung; Z86.711 Personal history of pulmonary embolism; Z79.4 Long term (current) use of insulin
CPT/HCPCS: 10081; 10194

== ENCOUNTER 2020-09-06 15:04 | Emergency (ER) | payer OTHER ==
[~2020-09-06] VITALS: Ht 175.3 cm; Wt 127.0 kg
--- NOTE | ~2020-09-06 | EMS ---
[facility] [address] [place] [address] EMS Patient Care Report Name: PHILLIP RODRIGUEZ Room #: PRE M.R.#: [id number] Admission: Attend Phys: Discharge: Date of : 48 Report #: [id number] THIS REPORT FOR: //name// Report Transmitted: 09/06/2020 15:25 EMS Care Summary [facility] MED-ACT Incident [id number] @ 09/06/2020 14:07 Incident Location [address] [place] [address] Patient PHILLIP RODRIGUEZ Male, 69 Years 1950 Patient Address [address] [place] [address] Patient History Congestive Heart Failure (CHF),Chronic Obstructive Pulmonary Disease (COPD),Hypertension (HTN),Hyperlipidemia,Lung Cancer,Pneumonia,Atrial Fibrillation, Patient Allergies No known allergies, Patient Medications Metformin, Lexapro, Xarelto, Victoza, Cardizem, Omeprazole, Torsemide, Lipitor, Humalog, Atorvastatin, Pantoprazole, Trazodone, Miralax, Melatonin, Ventolin, Chief Complaint Shortness of Breath Disposition Transported No Lights/[place] Reason Breathing Problem Transported To [facility] Narrative [facility] [address] [place] [address] EMS Patient Care Report Name: PHILLIP RODRIGUEZ Room #: PRE Yordy#: [id number] Admission: Attend Phys: Discharge: Date of : 46 Report #: [id number] Staff at [facility] reports that the patient just finished his second round of antibiotic for pneumonia last night and that the patient has been complaining of persistent shortness of breath today. The patient c/o increased shortness of breath with exertion. Patient reports he was initially diagnosed with pneumonia in July and has not really felt better with either of the first two rounds of antibiotic. Staff stated the patient has had one breathing treatment today and usually has 3-4/day. Patient denied fever/chills, chest pain/pressure/discomfort and nausea/vomiting. Patient reports moderate relief of his shortness of breath following a duo neb treatment. Found this 69 y/o male patient sitting up in a recliner chair next to his bed with [facility] and staff at his side. No acute distress was noted. Patient was a/o x 4. GCS 15. Patient's extremities were edematous (patient stated this is not new and that he has been swollen "for months"). Patient was on oxygen via nasal cannula at 5lpm via oxygen concentrator. Rhonchi noted bilaterally. Patient was helped to stand and pivot to the stretcher. Patient was placed in a dickson's position on the stretcher, secured with seat belts and moved to the MICU. A-fib on the monitor. Patient's temperature was 98.3 degrees. An 18 ga IV saline lock was-established in the patient's right antecubital. 12 lead showed A-fib. Initial EtCO2= 21. Patient given a nebulized treatment of albuterol/atrovent. Monitored the patient's vitals and ECG. Patient completed the nebulized treatment and reported moderate relief of his shortness of breath. Upon arrival at [facility], the patient was taken to ER #11 and moved via draw sheet to the ER bed by [id number] and ER staff. Report and paperwork TOT RAY Escobar, at the patient's bedside. Initial Vitals @PTAP: 80,R: 18,BP: 112/79,Pain: 0/10,GCS: 15,SpO2: 93,Revised Trauma: 12, @14:41P: 159,R: 18,Pain: 0/10,GCS: 15,EtCO2: 30,SpO2: 94, @14:31P: 91,R: 15,Pain: 0/10,GCS: 15,Glucose: 178,EtCO2: 26, @14:35P: 87,R: 18,Pain: 0/10,GCS: 15,EtCO2: 18,SpO2: 93,KS Suspected: false @14:30P: 151,R: 16,Pain: 0/10,GCS: 15,EtCO2: 21,SpO2: 93,KS Suspected: false @14:40P: 82,R: 17,BP: 113/72,Pain: 0/10,GCS: 15,EtCO2: 33,SpO2: 93,Revised Trauma: 12, @14:54P: 80,R: 17,BP: 125/60,Pain: 0/10,GCS: 15,EtCO2: 29,Revised Trauma: 12, @14:27P: 87,R: 18,BP: 105/66,GCS: 15,Temp: 97.3F,SpO2: 93,Revised Trauma: 12, Assessments @14:19MENTAL:Person Oriented,Time Oriented,Place Oriented,Event Oriented,SKIN:Pale,HEENT:Eyes: Left Pupil: 4-mm,Eyes: Right Pupil: 4-mm,Head/Face: No Abnormalities,LUNG SOUNDS:ABDOMEN:PELVIS//GI:EXTREMITIES:Left Arm: Edema,Right Arm: Edema,Left Leg: Edema,Right Leg: Edema,PULSE:Radial: 2+ Normal,NEURO:Weakness Left-Sided,Weakness Right-Sided, [facility] [address] [place] [address] EMS Patient Care Report Name: PHILLIP RODRIGUEZ Room #: [facility] M.R.#: [id number] Admission: Attend Phys: Discharge: Date of : 46 Report #: [id number] Impression Shortness of breath Procedures @14:18ALS AssessmentResponse: ImprovedSucceeded@14:39Oxygen FlowRate: 6 Device: Nebulizer Response: ImprovedSucceeded@14:32Saline Lock 10cc (18 ga) Site: Antecubital-RightResponse: UnchangedSucceeded@14:3112-Lead ECGResponse: UnchangedSucceeded@14:50Surgical Mask on PatientResponse: Unchanged Timeline SCIENTIST ENGINEER,BP: 112/79 M,PULSE: 80,RR: 18 R,SPO2: 93 Ox,ETCO2: ,BG: ,PAIN: 0,GCS: 15, 14:06,Call Received 14:06,Psap Call 14:07,Dispatched 14:07,En Route 14:14,On Scene 14:17,At Patient 14:18,ALS Assessment,Response: ImprovedSucceeded, 14:27,BP: 105/66 M,PULSE: 87,RR: 18 R,SPO2: 93 Ox,ETCO2: ,BG: ,PAIN: ,GCS: 15, 14:30,BP: / M,PULSE: 151,RR: 16 R,SPO2: 93 Ox,ETCO2: 21 ,BG: ,PAIN: 0,GCS: 15, 14:31,12-Lead ECG,Response: UnchangedSucceeded, 14:31,BP: / M,PULSE: 91,RR: 15 R,SPO2: Ox,ETCO2: 26 ,B,PAIN: 0,GCS: 15, 14:32,Saline Lock 10cc 18 ga Site: Antecubital-Right,Response: UnchangedSucceeded, 14:33,Depart Scene 14:35,BP: / M,PULSE: 87,RR: 18 R,SPO2: 93 Ox,ETCO2: 18 ,BG: ,PAIN: 0,GCS: 15, 14:39,Oxygen FlowRate: 6 Device: Nebulizer Response: ImprovedSucceeded, 14:40,BP: 113/72 M,PULSE: 82,RR: 17 R,SPO2: 93 Ox,ETCO2: 33 ,BG: ,PAIN: 0,GCS: 15, 14:41,BP: / M,PULSE: 159,RR: 18 R,SPO2: 94 Ox,ETCO2: 30 ,BG: ,PAIN: 0,GCS: 15, 14:50,Surgical Mask on Patient,Response: Unchanged 14:53,At Destination 14:54,BP: 125/60 M,PULSE: 80,RR: 17 R,SPO2: Ox,ETCO2: 29 ,BG: ,PAIN: 0,GCS: 15, 15:19,Call Closed Disclaimer v1.1 Copyright 2020 [employer] This EMS Care Summary contains data elements from the applicable legal record (which may be displayed differently). It is designed to provide pertinent information for the following purposes: continuity of care, clinical quality, and state data reporting. The complete legal record is available to ED staff and administrators of the receiving hospital in [email or web address]'s Patient Tracker. All data is provided "as is."
[~2020-09-06 15:04] MED LIST changes: +CEFUROXIME250 MG PO; +KLOR-CON 1010 MEQ PO; +LASIX 40 MG TAB40 MG PO
[2020-09-06 15:40] LABS: ABSOLUTE NEUTROPHILS 6.2 thou/uL (1.4-8.2); BASOPHILS 0.3 % (0.0-2.0); EOSINOPHILS 2.5 % (0.0-3.0); LYMPHOCYTES 6.6 % (24.0-44.0); MCH 33.3 pg (26.0-34.0); MCHC 34.1 g/dL (28.0-37.0); MCV 97.4 fL (80.0-100.0); MONOCYTES 11.2 % (1.0-8.0); PLATELET COUNT 204 thou/uL (150-400); POLYS 79.4 % (36.0-66.0); RDW 15.1 % (10.5-14.5); WBC 7.8 thou/uL (4.0-11.0)
[2020-09-06 15:57] LABS: APTT 29.7 Seconds (24.5-32.8); D-DIMER 0.27 ug/mLFEU (0.19-0.50); INR 1.31; PROTIME 14.1 Seconds (10.5-12.1)
[2020-09-06 16:00] LABS: URINE BILIRUBIN NEGATIVE (Negative); URINE BLOOD NEGATIVE (Negative); URINE CLARITY CLEAR; URINE COLOR YELLOW; URINE GLUCOSE-RANDOM* NEGATIVE (Negative); URINE KETONES NEGATIVE (Negative); URINE LEUKOCYTES-REFLEX NEGATIVE (Negative); URINE NITRITE-REFLEX NEGATIVE (Negative); URINE PROTEIN (DIPSTICK) NEGATIVE (Negative); URINE SPECIFIC GRAVITY 1.015 (1.005-1.035); URINE UROBILINOGEN 0.2 E.U./dl (0.2-1.0)
[2020-09-06 16:02] LABS: ALBUMIN 2.9 g/dL (3.4-5.0); ANION GAP 6 mmol/L (7-16); BUN 22 mg/dL (7-18); CHLORIDE 100 mmol/L (98-107); CO2 36 mmol/L (21-32); CREATININE 1.6 mg/dL (0.7-1.3); GLUCOSE 159 mg/dL (74-106); POTASSIUM 3.9 mmol/L (3.5-5.1); SGOT 16 U/L (15-37); SGPT 23 U/L (16-63); SODIUM 142 mmol/L (136-145); TOTAL BILIRUBIN 0.6 mg/dL (0.2-1.0); TOTAL PROTEIN 6.5 g/dL (6.4-8.2); TROPONIN-I <0.06 ng/mL (<0.06)
[2020-09-06] MEDS ORDERED: MIRALAX119 GM PO (16:18)
[2020-09-06] MEDS ORDERED: METOLAZONE 5 MG5 MG PO (16:19)
[2020-09-06] MEDS ORDERED: FUROSEMIDE 40 M40 MG PO (16:20)
[2020-09-06] MEDS ORDERED: DESYREL150 MG PO (16:22)
[2020-09-06] MEDS ORDERED: VITAMIN B-121000 MC2 SUBLING (16:24)
[2020-09-06 17:52] VITALS: BP 109/64
--- NOTE | 2020-09-07 07:05 | EKG ---
[place] [address] [facility] [place] [address] ELECTROCARDIOGRAM REPORT Name: PHILLIP RODRIGUEZ Room #: DEP [facility] [id number] Admission: 09/06/20 Attend Phys: Discharge: 09/06/20 Date of : 46 Report #: [id number] [facility] ED Test Date: 2020-09-06 Test Time: 15:07:12 Pat Name: PHILLIP RODRIGUEZ Department: Room: Gender: M Vp Patient: GILBERT : 1950 Requested By: Julio Ford Order Number: [id number] MD: Stephane Cosby Measurements Intervals [place] Rate: 78 P: [place]: QRS: 146 QRSD: 161 T: 48 QT: 442 QTc: 504 Interpretive Statements Atrial fibrillation RBBB and LPFB Compared to ECG 07/28/2020 07:32:48 Left posterior fascicular block now present Electronically Signed On 09-07-2020 7:05:21 CDT by Stephane Cosby [email or web address] <ELECTRONICALLY SIGNED> By: Stephane Cosby MD, [facility] 09/07/20 0705 1507 1507 Stephane Cosby MD, FACC /EPI
== END 2020-09-06 18:34 | disposition home or self-care (01) ==
LOC: ER 15:04
PROVIDERS: Emergency Medicine
DX: J18.9 Pneumonia, unspecified organism (principal); Z20.822 Contact with and (suspected) exposure to COVID-19; I11.0 Hypertensive heart disease with heart failure; I50.9 Heart failure, unspecified; J44.9 Chronic obstructive pulmonary disease, unspecified; E11.9 Type 2 diabetes mellitus without complications; I48.91 Unspecified atrial fibrillation; Z79.899 Other long term (current) drug therapy; Z91.040 Latex allergy status; Z88.8 Allergy status to other drugs, medicaments and biological substances